=== PATIENT | male | born 1995 | race Caucasian/White ===

== ENCOUNTER 2022-10-28 09:24 | Outpatient (REF) | payer OTHER, SELFPAY ==
[2022-10-28 11:48] LABS: Appearance Urine Clear; Color Urine Yellow; Glucose Urine UA Negative (Negative); Leukocyte Esterase Urine Negative (Negative); Nitrite Urine Negative (Negative); Specific Gravity - Urine 1.025 (1.005-1.025); Urine Blood Negative (Negative); Urine Ketones Negative (Negative); Urine Protein Negative (Neg-Trace)
[2022-10-28 12:37] LABS: Creatinine Urine 188.15 mg/dL; Microalbum/Creatinine Ratio Ur 5.3 ug/mg cr
[2022-10-28 12:39] LABS: Alanine Aminotransferase 21 U/L (0-40); Albumin Level 4.3 g/dL (3.5-5.0); Alkaline Phosphatase 88 U/L (39-117); Anion Gap 14 (12-20); Aspartate Amino Transferase 18 U/L (5-37); Bilirubin Total 0.6 mg/dL (0.0-1.0); Blood Urea Nitrogen 13 mg/dL (9-16); Calcium 9.3 mg/dL (8.4-10.2); Carbon Dioxide 25 mmol/L (22-29); Chloride 105 mmol/L (96-108); Cholesterol 173 mg/dL; Estimated Glomerular Filt Rate > 60; Glucose Fasting 85 mg/dL (60-99); HDL Cholesterol 61 mg/dL; LDL Cholesterol Calculated 100 mg/dl; Potassium 4.2 mmol/L (3.3-5.1); Sodium 140 mmol/L (135-145); Total Protein 6.9 g/dL (6.5-8.0); Triglycerides 62 mg/dL
[2022-10-28 12:56] LABS: Erythrocyte Sedimentation Rate 8 MM/HR (0-15)
[2022-10-28 13:28] LABS: Syphilis Screen Nonreactive (Nonreactive)
[2022-10-28 14:36] LABS: CT PCR NOT DETECTED (Not Detect.); NG PCR NOT DETECTED (Not Detect.)
[2022-10-29 13:13] LABS: CRP High Sensitivity 5.2 mg/L
[2022-10-30 04:55] LABS: HBS Num1 40.47 mIU/mL (0-7.99); HBc Num1 0.07 S/CO (0.00-0.79); HBsAGNum1 0.38 S/CO (0.00-0.99); HIV AB/AG Nonreactive (Nonreactive); HIV Num 1 0.06 S/CO (0.00-0.99); Hepatitis B Core Antibody Nonreactive (Nonreactive); Hepatitis B Surface Antigen Negative (Negative); ~HepC Num1 0.08 S/CO (0.00-0.79); ~Hepatitis B Surface Antibody REACTIVE (Nonreactive); ~Hepatitis C Antibody Nonreactive (Nonreactive)
== END 2022-10-28 09:25 | disposition home or self-care (01) ==
LOC: HO.HMGCLDS 09:24
PROVIDERS: Visit Provider Family Medicine
DX: Z00.00 Encounter for general adult medical examination without abnormal findings (principal); Z11.3 Encounter for screening for infections with a predominantly sexual mode of transmission; Z11.4 Encounter for screening for human immunodeficiency virus [HIV]; M54.9 Dorsalgia, unspecified; I10 Essential (primary) hypertension
CPT/HCPCS: 0353U; 80053; 80061; 81003; 82043; 84443; 85652; 86141; 86704; 86706; 86780; 86803; 87340; 87389

== ENCOUNTER → 2022-11-15 08:06 | Outpatient (BNVA) | payer OTHER, SELFPAY | PROVIDERS: PCP Family Medicine; Visit Provider Nurse Practitioner Family | DX: G47.30 Sleep apnea, unspecified (principal); G47.9 Sleep disorder, unspecified; G47.19 Other hypersomnia; R06.83 Snoring | CPT/HCPCS: 99202 ==

== ENCOUNTER 2022-12-26 09:00 | Outpatient (RCR) | payer OTHER, SELFPAY ==
--- NOTE | 2022-10-31 11:01 | MHC.PT.EP ---
[facility] [place] Office [place] [facility] [place] Office [address] Jalil Porras [address] [phone] F: [phone] F: [phone] F: [phone] F: [phone] Physical Therapy Plan of Care Date of Evaluation: Date of Surgery: Diagnosis: dorsalgia Assessment: Patient is a 27 year old R handed male who presents with s/s consistent with dorsalgia, low back pain. 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 Patient past medical history includes sleep apnea. Current impairments include pain, posture, TTP, flexibility, gait mechanics, ROM, strength, activity tolerance and functional mobility. Functional limitations include decreased ability to walk, sit, stand, lift, bend, carry, and sleep. Patient is motivated with good rehab potential. Skilled PT will address impairments and functional limitations in order to achieve goals. 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 Manual therapy to restore motion and function. Therapeutic exercise to improve strength and flexibility. Neuromuscular re-education for posture and balance. Therapeutic activities to return to functional activities of daily living. Electronically signed by: Senthil Ward, CRISTI Please sign and return to therapist. Thank you for your referral.
--- NOTE | 2023-03-10 08:42 | MHC.PT.DC ---
[facility] [place] Office [address] Jalil Porras [address] [phone] F: [phone] F: [phone] F: [phone] F: [phone] Physical Therapy Discharge Report Diagnosis: dorsalgia Date of Surgery: Date of Evaluation: 10/31/22 Date of Discharge: 01/14/23 Treatments to Date: 11 Cancellations to Date: No Shows to Date: Discharge Status: Independent with HEP Discharge Summary: 12/26/22: pt notes increased pain the last week. we discussed management techqniques in depth. He is willing to attempt to manage independently and call back if needed. he is I with HEP. AROM rotation 75% pain free. TTP min to absent. Improved trunk rotation with gait mechanics. We will plan to d/c to HEP in 4 weeks if no call back. 12/12/22: pt notes episode of low back pain after 30 minutes of standing. added quad ex with cues for neutral spine. continue to encourage neutral spine in clinic. 12/05/22: pt has been feeling better overall with less pain and improved pain free function. we are going to taper at this time to HEP 12/03/22: Pt progressing well with skilled PT. TTP still improved. He does get achiness and cracking at times. I did educate on how continued strengthening can facilitate the resolution of this. 11/28/22: pt progressing well with skilled PT. 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 11/21/22: pt has been experiencing good progress so we are keeping with a similar program. 11/19/22: reduced discomfort with functional activities but no reducted in TTP since last visit. 11/14/22: some TTP with p/a mobs present at grade III. reduced pain with daily activities. progressing strength and stretching with no adverse reactions. 11/12/22: pt progressing well. reduced sensitivity and pain with daily activities. 11/08/22: pt has been feeling better overall with skilled PT. improved tolerance to PA pressure today. 11/06/22: Pt has been having a tough time with HEP consistency. I educated him on the importance of this. Patient is a 27 year old R handed male who presents with s/s consistent with dorsalgia, low back pain. 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 Patient past medical history includes sleep apnea. Current impairments include pain, posture, TTP, flexibility, gait mechanics, ROM, strength, activity tolerance and functional mobility. Functional limitations include decreased ability to walk, sit, stand, lift, bend, carry, and sleep. Patient is motivated with good rehab potential. Skilled PT will address impairments and functional limitations in order to achieve goals. Electronically signed by: Senthil Ward, PT Please sign and return to therapist. Thank you for your referral.
== END 2023-03-10 09:27 | disposition home or self-care (01) ==
LOC: HO.PTCHIC 09:00
PROVIDERS: PCP Family Medicine; Visit Provider Family Medicine
DX: M54.9 Dorsalgia, unspecified (principal)
CPT/HCPCS: 97014; 97110; 97140; 97161

== ENCOUNTER 2022-12-27 10:58 | Outpatient (REF) | payer OTHER, SELFPAY ==
--- NOTE | ~2022-12-27 | XR_ITS ---
EXAMINATION: XR THORACOLUMBAR SPINE CLINICAL INFORMATION: EXAMINATION: XR THORACIC SPINE CLINICAL INFORMATION: Pain. COMPARISON: None available. TECHNIQUE: 3 views of the thoracic spine were obtained. FINDINGS: Mild kyphosis but no fracture or destructive process. Paraspinal soft tissue shadows are normal. XR/XR lumbar spine 2-3V IMPRESSION: Unremarkable examination. COMPARISON: None available. TECHNIQUE: 2 views lumbar spine FINDINGS: No fracture or destructive process or alignment abnormality. Vertebral body heights and disc space heights are preserved. IMPRESSION: Unremarkable study.
--- NOTE | ~2022-12-27 | XR_ITS ---
EXAMINATION: XR THORACOLUMBAR SPINE CLINICAL INFORMATION: EXAMINATION: XR THORACIC SPINE CLINICAL INFORMATION: Pain. COMPARISON: None available. TECHNIQUE: 3 views of the thoracic spine were obtained. FINDINGS: Mild kyphosis but no fracture or destructive process. Paraspinal soft tissue shadows are normal. XR/XR thoracic spine 2V IMPRESSION: Unremarkable examination. COMPARISON: None available. TECHNIQUE: 2 views lumbar spine FINDINGS: No fracture or destructive process or alignment abnormality. Vertebral body heights and disc space heights are preserved. IMPRESSION: Unremarkable study.
== END 2022-12-27 10:59 | disposition home or self-care (01) ==
LOC: HO.XRAY 10:58
PROVIDERS: PCP Family Medicine; Visit Provider Family Medicine
DX: M54.9 Dorsalgia, unspecified (principal)
CPT/HCPCS: 72070; 72100

== ENCOUNTER → 2023-01-28 09:03 | Outpatient (REF) | payer OTHER, SELFPAY | LOC: HO.SL 09:03 | PROVIDERS: PCP Family Medicine; Visit Provider Nurse Practitioner Family | DX: G47.33 Obstructive sleep apnea (adult) (pediatric) (principal) | CPT/HCPCS: 95806 ==

== ENCOUNTER 2023-04-08 16:19 | Outpatient (AMB) | payer OTHER, SELFPAY ==
[2023-04-08 16:40] VITALS: BP 130/78; PULSE 98; O2SAT 99; BMI 35.6
--- NOTE | 2023-04-08 16:40 | MHC.PC.OV ---
Vital Signs 04/08/23 16:40 Height 5 ft 10 in Weight 248 lb BMI 35.6 BP 130/78 Blood Pressure Location Lt brachial Position Sitting Pulse 98 Pulse Source Pulse Oximeter Pulse Oximetry (%) 99 Oxygen Delivery Method Room Air Intake Visit Reasons: Discuss Medical Issue Intake Note: Patient is here to get a referral for a therapist. He also has been having back pain that has not resolved with physical therapy, and would like to follow up on sleep study. Allergies No Known Allergies Allergy (Verified 04/08/23 17:12) Medication List - Last Reconciled 04/08/23 by Marisol Krishnan CNP gabapentin 1-2 caps orally 2 times a day PRN; 30 days meloxicam 15 mg PO DAILY 30 days omeprazole 20 mg PO DAILY 30 days Tobacco use date assessed: 04/08/23 Dental Screening Dental Screen Date: 04/08/23 Did you have a dental visit in the last 12 months?: Yes Did you have a dental problem in the last 6 months where you did not have access to dental care?: No Was dental information given to patient?: No HPI Discuss Medical Issue HPI Details 27 y/o male presents to get a referral for a therapist. Pt also has complaints of back pain which has not resolved with physical therapy. Pt has also tried gabapentin. Sleep study 02/12/23 showed that study significant for moderate degree of sleep apnea. Pt states he has been noticing that his temper has been a lot shorter than it normally is. Pt scores high for anxiety/depression. He denies making plans to hurt himself. He has not been on any medications for his anxiety/depression. He states he has not seen an orthopedics specialist for his back yet. He states he does not feel like meloxicam has been helping with his pain. HPI Comments History of Present Illness Details Documentation assistance for Maximino Zeng MD, was provided by Sonido Kessler,? Plate Shear Operator on 04/08/2023 5:08 PM YOVANA. I, Dr. Zeng, have read, observed, and verified documentation.? PFSH Family History (Updated 11/15/22 @ 08:12 by Deja Valderrama CMA) Father Diabetes HTN (hypertension) Social History (Updated 11/15/22 @ 08:12 by Deja Valderrama CMA) Housing: House Alcohol intake: current Alcohol intake frequency: holidays/special occasions only Patient Tobacco Use Status: Never used Tobacco e-Cigarette/Vaping Use: Never Used service: Yes Current occupational status: employed Cognitive needs: No Hearing needs: No Vision needs: No Questionnaire PHQ-9 Over the last 2 weeks, how often have you been bothered by any of the following problems? 1. Little interest or pleasure in doing things: more than half the days 2. Feeling down, depressed, or hopeless: more than half the days 3. Trouble falling or staying asleep, or sleeping too much: nearly every day 4. Feeling tired or having little energy: nearly every day 5. Poor appetite or overeating: nearly every day 6. Feeling bad about yourself - or that you are a failure or have let yourself or your family down: more than half the days 7. Trouble concentrating on things, such as reading the newspaper or watching television: more than half the days 8. Moving or speaking so slowly that other people could have noticed. Or the opposite - being so fidgety or restless that you have been moving around a lot more than usual: more than half the days 9. Thoughts that you would be better off or of hurting yourself in some way: several days Total score: 20 Depression Screening Interpretation: Positive 27130 - PHQ-9 Billing: Yes Source: Developed by Drs. Clement Velez, Sheyla Billings, Priyank Camara and colleagues, with an educational nam from [employer]. Thrive Questionnaire Date Thrive assessed: 10/18/22 NICHOLAS-7 AMB Questionnaire NICHOLAS-7 Date NICHOLAS - 7 assessed: 10/18/22 Feeling nervous, anxious, or on edge: 2 = More than half the days Not being able to stop or control worryin = Nearly every day Worrying too much about different things: 3 = Nearly every day Trouble relaxin = More than half the days Being so restless that it is hard to sit still: 2 = More than half the days Becoming easily annoyed or irritable: 2 = More than half the days Feeling afraid as if something awful might happen: 1 = Several days Total NICHOLAS-7 score (0-4 normal; 5-9 mild; 10-14 moderate; 15-21 severe): 15 Source: Developed by Sheyla ArriagaW. Manuelito, Priyank Camara and colleagues, with an educational nam from [employer]. NICHOLAS-7 Assessment Billing NICHOLAS-7 Assessment Tool: NICHOLAS-7 Assessment 84782 Review of Systems Psych Reports anxiety and Reports depression Physical exam (Primary Care) Vital Signs: Last Vital Signs Pulse 98 04/08/23 16:40 BP 130/78 04/08/23 16:40 Pulse Ox 99 04/08/23 16:40 Oxygen Delivery Method Room Air 04/08/23 16:40 BMI result Body Mass Index 35.6 Tobacco/Smoking Status: Tobacco use Status Tobacco use date assessed 04/08/23 04/08/23 16:43 Patient Tobacco Use Status Never used Tobacco 04/08/23 16:43 e-Cigarette/Vaping Use Never Used 04/08/23 16:43 PHQ-9: PHQ-9 Score PHQ-9: Total score 04/08/23 17:10 Depression Screening Interpretation: Positive Thrive Assessment: Date of Thrive Assessment Date Thrive assessed 10/18/22 04/08/23 16:43 Assessment and Plan Assessment & Plan (1) Back pain: Code(s): M54.9 - Dorsalgia, unspecified Plan: Chronic back pain. X-rays were unrevealing. He has tried physical therapy, meloxicam and gabapentin without much improvement. Will give him a 2nd round of meloxicam and will refer him to Ortho (2) Sleep apnea: Code(s): G47.30 - Sleep apnea, unspecified Plan: Sleep study showed moderately severe sleep apnea Advised he get back in touch with sleep medicine for follow-up. Will also ask the office to help patient set up follow-up. (3) Depression with anxiety: Code(s): F41.8 - Other specified anxiety disorders Plan: Patient denies any plan for self harm and contracts for safety Will refer to nurse navigator for evaluation for services and connection with a therapist Discussed 1st and 2nd line medications for mood disorders and will start Celexa Follow-up in a month Orders: Referrals Orthopedics Referral M54.9 - Dorsalgia, unspecified Nurse Navigator Referral F41.8 - Other specified anxiety disorders Medications: New citalopram (Celexa) 20 mg PO DAILY 30 tabs 1RF 30 days Refilled meloxicam 15 mg PO DAILY 30 days 30 tabs 2RF G47.30 - Sleep apnea, unspecified omeprazole 20 mg PO DAILY 30 days 30 caps 1RF M54.9 - Dorsalgia, unspecified Coding Level of Care Code Est Pt Level 4 (48443) Diagnoses Back pain M54.9 Sleep apnea G47.30 Depression with anxiety F41.8 Additional Codes NICHOLAS-7 Assessment Billing - NICHOLAS-7 Assessment Tool: NICHOLAS-7 Assessment 41969 ([id number])
== END 2023-04-08 17:25 | disposition home or self-care (01) ==
PROVIDERS: PCP Family Medicine; Visit Provider Family Medicine
DX: M54.9 Dorsalgia, unspecified (principal); G47.30 Sleep apnea, unspecified; F41.8 Other specified anxiety disorders
CPT/HCPCS: 96127; 99214

== ENCOUNTER 2023-05-06 10:32 | Outpatient (AMB) | payer OTHER, SELFPAY ==
[2023-05-06 10:46] VITALS: BP 120/80; PULSE 81; O2SAT 98; BMI 35.1
--- NOTE | 2023-05-06 10:46 | MHC.PC.OV ---
Vital Signs 05/06/23 10:46 Height 5 ft 10 in Weight 244 lb 8 oz BMI 35.1 BP 120/80 Blood Pressure Location Lt brachial Position Sitting Pulse 81 Pulse Source Pulse Oximeter Pulse Oximetry (%) 98 Oxygen Delivery Method Room Air Intake Visit Reasons: f/u anxiety/depression Intake Note: Patient is here for follow up on anxiety and depression. Allergies No Known Allergies Allergy (Verified 05/06/23 10:48) Tobacco use date assessed: 05/06/23 Dental Screening Dental Screen Date: 05/06/23 Did you have a dental visit in the last 12 months?: Yes Did you have a dental problem in the last 6 months where you did not have access to dental care?: No Was dental information given to patient?: No HPI f/u anxiety/depression HPI Details 27 y/o male presents to f/u depression/anxiety. Had started him on citalopram and referred him to nurse navigator for connection to a therapist. Pt had reported ongoing chronic back pain despite conservative care. He reports citalopram has been helping with his day to day anxiety. Pt reports he had gotten his CPAP machine yesterday. Had referred him to orthopedics for his back but he reports his appointment is in May. [facility] Family History Father Diabetes HTN (hypertension) Social History Housing: House Alcohol intake: current Alcohol intake frequency: holidays/special occasions only Patient Tobacco Use Status: Former Tobacco user e-Cigarette/Vaping Use: Never Used service: Yes Current occupational status: employed Current occupation: [employer] Cognitive needs: No Hearing needs: No Vision needs: No Questionnaire PHQ-9 Over the last 2 weeks, how often have you been bothered by any of the following problems? 1. Little interest or pleasure in doing things: several days 2. Feeling down, depressed, or hopeless: several days 3. Trouble falling or staying asleep, or sleeping too much: nearly every day 4. Feeling tired or having little energy: nearly every day 5. Poor appetite or overeating: several days 6. Feeling bad about yourself - or that you are a failure or have let yourself or your family down: several days 7. Trouble concentrating on things, such as reading the newspaper or watching television: several days 8. Moving or speaking so slowly that other people could have noticed. Or the opposite - being so fidgety or restless that you have been moving around a lot more than usual: not at all 9. Thoughts that you would be better off or of hurting yourself in some way: not at all Total score: 11 Source: Developed by Drs. Clement Velez, Sheyla Billings, Priyank Camara and colleagues, with an educational nam from [employer]. Thrive Questionnaire Date Thrive assessed: 10/18/22 NICHOLAS-7 AMB Questionnaire NICHOLAS-7 Date NICHOLAS - 7 assessed: 10/18/22 Feeling nervous, anxious, or on edge: 1 = Several days Not being able to stop or control worryin = Several days Worrying too much about different things: 1 = Several days Trouble relaxin = Several days Being so restless that it is hard to sit still: 0 = Not at all Becoming easily annoyed or irritable: 1 = Several days Feeling afraid as if something awful might happen: 1 = Several days Total NICHOLAS-7 score (0-4 normal; 5-9 mild; 10-14 moderate; 15-21 severe): 6 Source: Developed by Drs. Clement Velez, Sheyla Billings, Priyank Camara and colleagues, with an educational nam from [employer]. Review of Systems Const Denies chills, Denies fatigue, Denies fever(s), Denies headache(s) and Denies weakness ENT Denies dizziness and Denies headache(s) Card Denies chest pain, Denies lightheadedness, Denies dyspnea and Denies other (Palpitations) Resp Denies cough, Denies dyspnea, Denies wheezing and Denies other ( shortness of breath) Musc Denies numbness and Denies tingling Neuro Denies dizziness, Denies headache(s), Denies numbness, Denies tingling, Denies paresthesias and Denies weakness Psych Denies anxiety and Denies depression Endo Denies fatigue Aller/Immun Denies wheezing Physical exam (Primary Care) Vital Signs: Last Vital Signs Pulse 81 05/06/23 10:46 BP 120/80 05/06/23 10:46 Pulse Ox 98 05/06/23 10:46 Oxygen Delivery Method Room Air 05/06/23 10:46 BMI result Body Mass Index 35.1 Tobacco/Smoking Status: Tobacco use Status Tobacco use date assessed 05/06/23 05/06/23 10:55 Patient Tobacco Use Status Former Tobacco user 05/06/23 10:55 e-Cigarette/Vaping Use Never Used 05/06/23 10:55 PHQ-9: PHQ-9 Score PHQ-9: Total score 11 05/06/23 11:25 Thrive Assessment: Date of Thrive Assessment Date Thrive assessed 10/18/22 05/06/23 10:55 Const General: no acute distress and well developed Nutritional Appearance: well nourished Orientation/consciousness: patient oriented x3 HENMT Head: Yes normocephalic and Yes atraumatic Eyes General: appearance normal, both eyes and all related structures Pupils: Equal, round and reactive pupils present EOM: EOMs intact bilaterally Resp Effort & Inspection: normal respiratory effort Auscultation: clear to auscultation bilaterally Cardio Rate: regular rate Rhythm: regular rhythm Heart sounds: S1 normal heart sound present, S2 normal heart sound present, no gallops, no murmurs and no rubs Neuro General: patient oriented x3 and gait normal Cranial nerves: Yes Equal, round and reactive pupils present Psych Affect: normal affect Assessment and Plan Assessment & Plan (1) Depression with anxiety: Code(s): F41.8 - Other specified anxiety disorders Plan: Mild improvement with Celexa 20 mg daily He has not heard from a therapist yet so I am asking the nurse navigator to follow-up on this Also encouraged regular exercise Will follow-up with me in 2 months (2) Back pain: Code(s): M54.9 - Dorsalgia, unspecified Plan: Referred to ortho and has an appointment in May (3) Sleep apnea: Code(s): G47.30 - Sleep apnea, unspecified Plan: Started CPAP machine yesterday and is a little frustrated but is hopeful he will be able to tolerate this. Encouraged patient and suggested trials of practice while awake as well. Encouraged regular use Follow-up with sleep medicine Coding Level of Care Code Est Pt Level 3 (54119) Diagnoses Depression with anxiety F41.8 Back pain M54.9 Sleep apnea G47.30
== END 2023-05-06 11:34 | disposition home or self-care (01) ==
PROVIDERS: PCP Family Medicine; Visit Provider Family Medicine
DX: F41.8 Other specified anxiety disorders (principal); M54.9 Dorsalgia, unspecified; G47.30 Sleep apnea, unspecified
CPT/HCPCS: 99213

== ENCOUNTER 2023-06-25 10:31 | Outpatient (AMB) | payer OTHER, SELFPAY ==
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
[2023-06-25 10:38] VITALS: BP 104/68; PULSE 93; RESP 14; TEMP 37.2; O2SAT 98; BMI 35.4
== END 2023-06-25 12:06 | disposition home or self-care (01) ==
PROVIDERS: PCP Family Medicine; Visit Provider Family Medicine
DX: S06.0XAA Concussion with loss of consciousness status unknown, initial encounter (principal); M54.2 Cervicalgia; M54.9 Dorsalgia, unspecified; M25.519 Pain in unspecified shoulder; V89.2XXA Person injured in unspecified motor-vehicle accident, traffic, initial encounter
CPT/HCPCS: 99214

== ENCOUNTER 2023-07-01 14:22 | Outpatient (AMB) | payer OTHER, SELFPAY ==
[2023-07-01 14:26] VITALS: BP 122/78; PULSE 83; O2SAT 98; BMI 35.5
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
== END 2023-07-01 15:18 | disposition home or self-care (01) ==
PROVIDERS: PCP Family Medicine; Visit Provider Family Medicine
DX: S06.0XAA Concussion with loss of consciousness status unknown, initial encounter (principal); R51.9 Headache, unspecified; M54.2 Cervicalgia
CPT/HCPCS: 99213

== ENCOUNTER 2023-07-10 13:03 | Outpatient (AMB) | payer OTHER, SELFPAY ==
--- NOTE | 2023-07-10 13:05 | MHC.OFFVIS ---
Intake Vital Signs 07/10/23 13:07 Height 5 ft 10 in Weight 247 lb 6 oz BMI 35.5 BP 122/80 Blood Pressure Location Rt brachial Position Sitting Pulse 101 H Pulse Source Pulse Oximeter Pulse Oximetry (%) 97 Oxygen Delivery Method Room Air Intake Visit Reasons: 2m f/up MONICA - Confirmed Intake Note: Pt presents to the office today for a 2 month follow up for MONICA. Pt states he has been sleeping better with the CPAP. Pt states he is still waking up during the night but he states it is easier to fall back to sleep. Allergies No Known Allergies Allergy (Verified 07/10/23 13:08) HPI HPI Comments History of Present Illness Details 27 y/o male patient presents for follow up of sleep study. The home sleep study result was significant for moderate degree of sleep apnea. The AHI was 16/hr and oxygen little was 76%. Pt started APAP 5-16pmN1A. The usage days 43% and the average usage hours 4 hrs and 30 min. The max pressure was 12 and the residual AHI was 1.6/hr. Pt reports he did not use CPAP regularly. He still had wakes up with CPAP and had nightmares. PFSH Family History Father Diabetes HTN (hypertension) Social History Housing: House Alcohol intake: current Alcohol intake frequency: holidays/special occasions only Patient Tobacco Use Status: Former Tobacco user e-Cigarette/Vaping Use: Never Used service: Yes Current occupational status: employed Current occupation: [employer] Cognitive needs: No Hearing needs: No Vision needs: No Review of Systems Const All systems reviewed & are unremarkable except as noted in HPI and below ENT Reports Normal hearing present Neuro Reports Normal hearing present Physical Exam Vital Signs: Last Vital Signs Pulse 101 H 07/10/23 13:07 BP 122/80 07/10/23 13:07 Pulse Ox 97 07/10/23 13:07 Oxygen Delivery Method Room Air 07/10/23 13:07 BMI result Body Mass Index 35.5 Const General: cooperative Nutritional Appearance: obese Orientation/consciousness: patient oriented x3 HEENT Throat: Yes other (mallapati grade 4) Neck Neck: Yes full ROM and Yes supple Resp Effort & Inspection: normal respiratory effort and able to speak in complete sentences Neuro General: patient oriented x3, gait normal and moves all extremities Cranial nerves: Yes Normal facial strength present, Yes Midline tongue present, Yes Symmetric palate elevation present, Yes Normal hearing present and Yes Ability to bilaterally rotate head present Cognition (Neuro): normal cognition Gait exam (Neuro): Normal gait present Motor exam (neuro): 5/5 motor strength present throughout, Pronator motor function not present and no tremor noted Psych Appearance: grossly normal Mental Status: mental status grossly normal Affect: normal affect Attitude: cooperative Assessment & Plan Assessment & Plan (1) Sleep apnea: Code(s): G47.30 - Sleep apnea, unspecified (2) Difficulty sleeping: Code(s): G47.9 - Sleep disorder, unspecified (3) Snoring: Code(s): R06.83 - Snoring (4) Excessive daytime sleepiness: Code(s): G47.19 - Other hypersomnia Plan Advised patient to continue to use APAP [id number]. Stressed compliance, use CPAP nightly and more than 4hrs. Advised patient to try magnesium 400 mg qHS for sleep. Wt reduction adivsed. Medications: New magnesium oxide 400 mg PO DAILY 30 tabs 4RF 30 days Coding Level of Care Code Est Pt Level 3 (52080) Diagnoses Sleep apnea G47.30 Difficulty sleeping G47.9 Snoring R06.83 Excessive daytime sleepiness G47.19
[2023-07-10 13:07] VITALS: BP 122/80; PULSE 101; O2SAT 97; BMI 35.5
== END 2023-07-10 13:32 | disposition home or self-care (01) ==
PROVIDERS: PCP Family Medicine; Visit Provider Nurse Practitioner Family
DX: G47.30 Sleep apnea, unspecified (principal); G47.9 Sleep disorder, unspecified; R06.83 Snoring; G47.19 Other hypersomnia
CPT/HCPCS: 99213

== ENCOUNTER → 2023-07-10 13:03 | Outpatient (BNVA) | payer OTHER, SELFPAY | PROVIDERS: Visit Provider Nurse Practitioner Family | DX: G47.30 Sleep apnea, unspecified (principal); G47.9 Sleep disorder, unspecified; R06.83 Snoring; G47.19 Other hypersomnia; E66.9 Obesity, unspecified; Z99.89 Dependence on other enabling machines and devices; Z91.85 Personal history of military service | CPT/HCPCS: 99212 ==

== ENCOUNTER 2023-11-10 14:16 | Outpatient (AMB) | payer OTHER, SELFPAY ==
--- NOTE | 2023-11-10 14:41 | MHC.OFFVIS ---
Intake Vital Signs 11/10/23 14:44 Height 5 ft 10 in Weight 255 lb BMI 36.6 BP 120/84 Blood Pressure Location Lt brachial Position Sitting Pulse 72 Pulse Source Pulse Oximeter Pulse Oximetry (%) 97 Oxygen Delivery Method Room Air Intake Visit Reasons: 4m f/up MONICA- Confirmed Intake Note: Presents for 4 month f/u. Allergies No Known Allergies Allergy (Verified 07/10/23 13:08) HPI HPI Comments History of Present Illness Details 28 y/o male patient presents for follow up of MONICA on CPAP. The home sleep study result was significant for moderate degree of sleep apnea. The AHI was 16/hr and oxygen little was 76%. Pt started APAP 5-70sgD2N. The CPAP compliance and therapy response (08/06/23-11/03/23) reviewed. The usage days 93% and the average usage hours 6 hrs and 30 min. The max pressure was 12.9 and the residual AHI was 1.2/hr. Pt reports he sleeps well with CPAP for 6-8 hrs. He feels refreshed in the morning and much less tired during daytime. PFSH Family History Father Diabetes HTN (hypertension) Social History Housing: House Alcohol intake: current Alcohol intake frequency: holidays/special occasions only Patient Tobacco Use Status: Former Tobacco user e-Cigarette/Vaping Use: Never Used service: Yes Current occupational status: employed Current occupation: [employer] Cognitive needs: No Hearing needs: No Vision needs: No Review of Systems Const All systems reviewed & are unremarkable except as noted in HPI and below ENT Reports Normal hearing present Neuro Reports Normal hearing present Physical Exam Vital Signs: Last Vital Signs Pulse 72 11/10/23 14:44 BP 120/84 11/10/23 14:44 Pulse Ox 97 11/10/23 14:44 Oxygen Delivery Method Room Air 11/10/23 14:44 BMI result Body Mass Index 36.6 Const General: cooperative Nutritional Appearance: obese Orientation/consciousness: patient oriented x3 HEENT Throat: Yes other (mallapati grade 4) Neck Neck: Yes full ROM and Yes supple Resp Effort & Inspection: normal respiratory effort and able to speak in complete sentences Neuro General: patient oriented x3, gait normal and moves all extremities Cranial nerves: Yes Normal facial strength present, Yes Midline tongue present, Yes Symmetric palate elevation present, Yes Normal hearing present and Yes Ability to bilaterally rotate head present Cognition (Neuro): normal cognition Gait exam (Neuro): Normal gait present Motor exam (neuro): 5/5 motor strength present throughout, Pronator motor function not present and no tremor noted Psych Appearance: grossly normal Mental Status: mental status grossly normal Affect: normal affect Attitude: cooperative Assessment & Plan Assessment & Plan (1) Sleep apnea: Code(s): G47.30 - Sleep apnea, unspecified Plan Advised patient to continue to use APAP 5-11kgR1P as patient experiences good clinical effects, better quality sleep with less daytimes sleepiness. Stressed compliance, use CPAP nightly and more than 4hrs. Wt reduction adivsed. Coding Level of Care Code Est Pt Level 3 (96075) Diagnoses Sleep apnea G47.30
[2023-11-10 14:44] VITALS: BP 120/84; PULSE 72; O2SAT 97; BMI 36.6
== END 2023-11-10 14:56 | disposition home or self-care (01) ==
PROVIDERS: PCP Family Medicine; Visit Provider Nurse Practitioner Family
DX: G47.30 Sleep apnea, unspecified (principal)
CPT/HCPCS: 99213

== ENCOUNTER → 2023-11-10 14:16 | Outpatient (BNVA) | payer OTHER, SELFPAY | PROVIDERS: PCP Family Medicine; Visit Provider Nurse Practitioner Family | DX: G47.30 Sleep apnea, unspecified (principal) | CPT/HCPCS: 99212 ==

== ENCOUNTER 2023-12-17 15:57 | Outpatient (AMB) | payer OTHER, SELFPAY ==
[2023-12-17 16:04] VITALS: BP 126/84; PULSE 101; RESP 13; TEMP 36.5; O2SAT 99; BMI 37.5
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
== END 2023-12-17 16:44 | disposition home or self-care (01) ==
PROVIDERS: Visit Provider Family Medicine
DX: Z00.00 Encounter for general adult medical examination without abnormal findings (principal); F41.8 Other specified anxiety disorders; G47.30 Sleep apnea, unspecified; R10.9 Unspecified abdominal pain; R12 Heartburn; M25.532 Pain in left wrist; M25.512 Pain in left shoulder; Z13.31 Encounter for screening for depression
CPT/HCPCS: 96127; 99395

== ENCOUNTER 2023-12-30 15:13 | Outpatient (REF) | payer OTHER, SELFPAY ==
[2023-12-30 16:30] LABS: Appearance Urine Clear; Color Urine Yellow; Glucose Urine UA Negative (Negative); Leukocyte Esterase Urine Negative (Negative); Nitrite Urine Negative (Negative); PH 7.5 (5.0-9.0); Urine Blood Negative (Negative); Urine Ketones Negative (Negative); Urine Protein Negative (Neg-Trace)
[2023-12-30 16:53] LABS: Creatinine Urine 168.08 mg/dL; Microalbum/Creatinine Ratio Ur 3.5 ug/mg cr (<30)
[2023-12-30 17:00] LABS: Alanine Aminotransferase 25 U/L (0-40); Albumin Level 4.3 g/dL (3.5-5.0); Alkaline Phosphatase 85 U/L (39-117); Anion Gap 11 (12-20); Aspartate Amino Transferase 15 U/L (5-37); Bilirubin Total 0.2 mg/dL (0.0-1.0); Blood Urea Nitrogen 10 mg/dL (9-16); Calcium 9.6 mg/dL (8.4-10.2); Carbon Dioxide 26 mmol/L (22-29); Chloride 107 mmol/L (96-108); Cholesterol 181 mg/dL (<200); Estimated Glomerular Filt Rate > 60; Glucose Fasting 114 mg/dL (60-99); HDL Cholesterol 68 mg/dL (>40); LDL Cholesterol Calculated 89 mg/dL (<100); Potassium 3.6 mmol/L (3.3-5.1); Sodium 140 mmol/L (135-145); Total Protein 7.5 g/dL (6.5-8.0); Triglycerides 124 mg/dL (<150)
[2023-12-30 17:15] LABS: TSH reflex Free T4 1.13 uIU/mL (0.32-4.0)
== END 2023-12-30 15:14 | disposition home or self-care (01) ==
LOC: HO.HMGCLDS 15:13
PROVIDERS: PCP Family Medicine; Visit Provider Family Medicine
DX: Z00.00 Encounter for general adult medical examination without abnormal findings (principal); I10 Essential (primary) hypertension
CPT/HCPCS: 36415; 80053; 80061; 81003; 82043; 82570; 84443

== ENCOUNTER 2024-08-04 14:48 | Outpatient (AMB) | payer BC, SELFPAY ==
--- NOTE | 2024-08-04 14:53 | A.OFFPC_ITS ---
Vital Signs 08/04/24 15:02 Height 5 ft 10 in Weight 260 lb BMI 37.3 BP 104/90 H Blood Pressure Location Lt brachial Position Sitting Respiration 16 Pulse 103 H Pulse Source Pulse Oximeter Temp 98.0 F Temp Source Oral Pulse Oximetry (%) 95 Oxygen Delivery Method Room Air Intake Visit Reasons: FU elevated fasting glucose Allergies No Known Allergies Allergy (Verified 08/04/24 15:05) Medication List - Last Reconciled 08/04/24 by Maximino Zeng MD citalopram (Celexa) 20 mg PO DAILY 30 days cyclobenzaprine 10 mg PO BEDTIME PRN 10 days NS gabapentin 1-2 caps orally 2 times a day PRN; 30 days hydroxyzine HCl 50 mg PO BEDTIME 30 days magnesium oxide 400 mg PO DAILY 30 days meloxicam 15 mg PO DAILY 30 days omeprazole 20 mg PO DAILY 30 days Tobacco use date assessed: 12/31/23 Dental Screening Dental Screen Date: 12/17/23 HPI FU elevated fasting glucose HPI Details 28 y/o male presents to f/u elevated fas ting glucose. Had a hx of elevated fasting glucose of 114. A1c today 08/04/24 is 5.7%. [facility] Medical History No pertinent past medical history Surgical History No pertinent past surgical history Family History Father Diabetes HTN (hypertension) Other Mental health disorder Substance abuse Social History Housing: House Alcohol intake: current Alcohol intake frequency: holidays/special occasions only Patient Tobacco Use Status: Former Tobacco user e-Cigarette/Vaping Use: Currently Using service: Yes Current occupational status: employed Current occupation: [employer] Cognitive needs: No Hearing needs: No Vision needs: No Questionnaire PHQ-9 Over the last 2 weeks, how often have you been bothered by any of the following problems? 1. Little interest or pleasure in doing things: more than half the days 2. Feeling down, depressed, or hopeless: more than half the days 3. Trouble falling or staying asleep, or sleeping too much: nearly every day 4. Feeling tired or having little energy: more than half the days 5. Poor appetite or overeating: more than half the days 6. Feeling bad about yourself - or that you are a failure or have let yourself or your family down: more than half the days 7. Trouble concentrating on things, such as reading the newspaper or watching television: several days 8. Moving or speaking so slowly that other people could have noticed. Or the opposite - being so fidgety or restless that you have been moving around a lot more than usual: not at all 9. Thoughts that you would be better off or of hurting yourself in some way: several days Total score: 15 Source: Developed by Drs. Clement Velez, Sheyla Billings, Priyank Camara and colleagues, with an educational nam from [employer]. Thrive Questionnaire Date Thrive assessed: 12/17/23 I am a: Patient What is your living situation today?: I have a steady place to live Within the past 12 months, did the food you bought not last and you didn't have the money to get more?: Never true Within the past 12 months, did you worry whether your food would run out before you got money to buy more?: Never true Do you have trouble paying for medicines?: No Do you have trouble getting transportation to medical appointments?: No Do you have trouble paying your heating and electricity bill?: No Do you have trouble taking care of your child, family member or friend?: No Do you have trouble with day-to-day activities such as bathing, preparing meals, shopping, managing finances, etc.?: No Are you currently unemployed and looking for a job?: No Are you interested in more education?: Yes Please select the resources that you would like help with: None Currently or been in a relationship where the following occur: No concerns reported THRIVE Score: 0 AUDIT C Alcohol Use Questionnaire (AUDIT-C) 1. How often do you have a drink containing alcohol?: 2-3 times a week 2. How many drinks containing alcohol do you have on a typical day when you are drinking?: 3 or 4 3. How often do you have six or more drinks on one occasion?: Monthly Total Score: 6 NICHOLAS-7 AMB Questionnaire NICHOLAS-7 Date NICHOLAS - 7 assessed: 12/17/23 Feeling nervous, anxious, or on edge: 2 = More than half the days Not being able to stop or control worryin = More than half the days Worrying too much about different things: 2 = More than half the days Trouble relaxin = More than half the days Being so restless that it is hard to sit still: 1 = Several days Becoming easily annoyed or irritable: 2 = More than half the days Feeling afraid as if something awful might happen: 1 = Several days Total NICHOLAS-7 score (0-4 normal; 5-9 mild; 10-14 moderate; 15-21 severe): 12 Source: Developed by Drs. Clement Velez, Sheyla Billings, Priyank Camara and colleagues, with an educational nam from [employer]. Review of Systems Const Denies chills, Denies fatigue, Denies fever(s), Denies headache(s) and Denies weakness ENT Denies dizziness and Denies headache(s) Card Denies chest pain, Denies lightheadedness, Denies dyspnea and Denies other (Palpitations) Resp Denies cough, Denies dyspnea, Denies wheezing and Denies other ( shortness of breath) Musc Denies numbness and Denies tingling Neuro Denies dizziness, Denies headache(s), Denies numbness, Denies tingling, Denies paresthesias and Denies weakness Psych Denies anxiety and Denies depression Endo Denies fatigue Aller/Immun Denies wheezing Physical exam (Primary Care) Vital Signs: Last Vital Signs Temp 98.0 F 08/04/24 15:02 Pulse 103 H 08/04/24 15:02 Resp 16 08/04/24 15:02 BP 104/90 H 08/04/24 15:02 Pulse Ox 95 08/04/24 15:02 Oxygen Delivery Method Room Air 08/04/24 15:02 BMI result Body Mass Index 37.3 Tobacco/Smoking Status: Tobacco use Status Tobacco use date assessed 12/31/23 08/04/24 14:54 Patient Tobacco Use Status Former Tobacco user 08/04/24 14:54 e-Cigarette/Vaping Use Currently Using 08/04/24 14:54 PHQ-9: PHQ-9 Score PHQ-9: Total score 15 08/04/24 15:02 Thrive Assessment: Date of Thrive Assessment Date Thrive assessed 12/17/23 08/04/24 14:54 Currently or been in a relationship where the following occur: No concerns reported Const General: no acute distress and well developed Nutritional Appearance: well nourished Orientation/consciousness: patient oriented x3 HENMT Head: Yes normocephalic and Yes atraumatic Eyes General: appearance normal, both eyes and all related structures Pupils: Equal, round and reactive pupils present EOM: EOMs intact bilaterally Resp Effort & Inspection: normal respiratory effort Auscultation: clear to auscultation bilaterally Cardio Rate: regular rate Rhythm: regular rhythm Heart sounds: S1 normal heart sound present, S2 normal heart sound present, no gallops, no murmurs and no rubs Neuro General: patient oriented x3 and gait normal Cranial nerves: Yes Equal, round and reactive pupils present Psych Affect: normal affect Results AMB Hemoglobin A1c AMB Hemoglobin A1c 5.7 % Last Edit by SETH Hernández on 08/04/24 15:12 Results Reviewed Results Reviewed: Laboratory Last Values Hgb A1c (Clinic) 5.7 % (4.0-6.0) 08/04/24 15:11 Coding Level of Care Code Est Pt Level 3 (89476) Diagnoses Pre-diabetes R73.03 Assessment & Plan Assessment & Plan (1) Pre-diabetes: Code(s): R73.03 - Prediabetes Category: Medical Plan: A1c?5.7%;?pre?diabetes. Encouraged?a?diet?lower?in?sugars?and?starches Encouraged?weight?loss?and?exercise Orders: Orders AMB Hemoglobin A1c Today R73.03 - Prediabetes
[2024-08-04 15:02] VITALS: BP 104/90; PULSE 103; RESP 16; TEMP 36.7; O2SAT 95; BMI 37.3
== END 2024-08-04 15:15 | disposition home or self-care (01) ==
LOC: HO.HMCFM 14:49
PROVIDERS: PCP Family Medicine; Visit Provider Family Medicine
DX: R73.03 Prediabetes (principal)

== ENCOUNTER → 2024-08-04 14:48 | Outpatient (BNVA) | payer BC, SELFPAY | PROVIDERS: PCP Family Medicine; Visit Provider Family Medicine | DX: R73.03 Prediabetes (principal) | CPT/HCPCS: 83036; 96127 ==

== ENCOUNTER 2024-11-01 10:23 | Outpatient (REF) | payer BC, SELFPAY ==
--- OUTSIDE RECORDS SUMMARY | 2024-11-01 11:13 | XMS_ITS | Continuity of Care Document ---
Author Name [facility] Organization [facility] Care Team Providers Care Physician Obstetrician Name Role Phone [facility] Unavailable Unavailable Medications Combined list of outpatient medications from Department of Defense and Veterans Affairs facilities.Medications provided include 1) outpatient medications from the last 15 months, and 2) patient-reported medications. Medication Details Route Status Patient Instructions Prescription Expires Prescription Number Last Dispense Date Ordering Provider Order Date Order Qty Source CITALOPRAM HBR (CITALOPRAM HYDROBROMID E), 20MG, TABLET, ORAL, TORRENT PHARMAC, 500 ea. BOTTLE Cancele d [id number] : 2023 0 Pharmac y Data Transac tion Service Facilit y CITALOPRAM HBR (CITALOPRAM HYDROBROMID E), 20MG, TABLET, ORAL, TORRENT PHARMAC, 500 ea. BOTTLE Cancele d [id number] : 2023 0 Pharmac y Data Transac tion Service Facilit y CITALOPRAM HBR (CITALOPRAM HYDROBROMID E), 20MG, TABLET, ORAL, TORRENT PHARMAC, 500 ea. BOTTLE Active [id number] 2023 30 Pharmac y Data Transac tion Service Facilit y CITALOPRAM HBR (CITALOPRAM HYDROBROMID E), 20MG, TABLET, ORAL, TORRENT PHARMAC, 500 ea. BOTTLE Active [id number] 2022 30 Pharmac y Data Transac tion Service Facilit y gabapentin 300 mg oral capsule 1 cap(s), Oral, TID, 0 total refill(s ), Maintena nce Oral (given by mouth) Ordered 0035C-N [facility] [place]o HYDROXYZINE HCL (hydroxyzin e HCl), 50 MG, TABLET, ORAL, AUROBINDO PHARM, 500 ea. BOTTLE Cancele d [id number] : 2023 0 Pharmac y Data Transac tion Service Facilit y MELOXICAM (MELOXICAM) , 15 MG, TABLET, ORAL, CIPLA [employer] 100 ea. BOTTLE Cancele d [id number] : 2023 0 Pharmac y Data Transac tion Service Facilit y meloxicam 15 mg oral tablet 1 tab(s), Oral, Daily, 0 total refill(s ), Maintena nce Oral (given by mouth) Ordered [id number]-N [facility] OMEPRAZOLE (omeprazole ), 20 MG, CAPSULE DR, ORAL, RISING PHARM, 1000 ea. BOTTLE Cancele d [id number] : 2023 0 Pharmac y Data Transac tion Service Facilit y OMEPRAZOLE (omeprazole ), 20 MG, CAPSULE DR, ORAL, RISING PHARM, 1000 ea. BOTTLE Cancele d [id number] : 2023 0 Pharmac y Data Transac tion Service Facilit y OMEPRAZOLE (omeprazole ), 20 MG, CAPSULE DR, ORAL, RISING PHARM, 1000 ea. BOTTLE Active [id number] 2022 30 Pharmac y Data Transac tion Service Facilit y OMEPRAZOLE (omeprazole ), 20 MG, CAPSULE DR, ORAL, RISING PHARM, 1000 ea. BOTTLE Active [id number] 2023 30 Pharmac y Data Transac tion Service Facilit y Allergies, Adverse Reactions, Alerts Combined list of allergies from Department of Defense and Veterans Affairs facilities. It does not include entries that were removed or entered in error. Substance Category Reaction Severity Reaction type Status Date Reported Comments Source No Known Allergies Drug allergy (disorder) active 01/21/2017 Jr Miguel [facility] Immunizations Combined list of available immunizations from the Department of Defense and Veterans Affairs facilities. Immunization Series Date Given Administered By Site Reaction Lot Number CVX Code Drug Bread Slicer Machine Status Comments Source COVID Vaccine Moderna 2021 zzLef t Arm [id number] complet ed COVID Vaccine Moderna 10/03/21 Given Ambulat ory Pharmac y SARS-COV-2 (COVID-19) vaccine, mRNA, spike protein, LNP, preservative free, 100 mcg or 50 mcg dose 3 2021 MIREYA WALL [id number] Moderna [employer] (MOD) complet ed SARS-COV- 2 (COVID-19 ) vaccine, mRNA, spike protein, LNP, preservat ekta free, 100 mcg or 50 mcg dose DoD influenza, injectable, quadrivalent- pf 2020 [id number] Seqirus complet ed influenza , injectabl e, quadrival ent-pf 07/31/21 Given Ambulat ory Pharmac y Influenza, injectable, quadrivalent, preservative free 0 2020 [id number] Seqirus (SEQ) comple t ed Influenza , injectabl e, quadrival ent, preservat ekta free DoD COVID Vaccine Moderna 2020 zzLef t Arm [id number] complet ed COVID Vaccine Moderna 11/22/20 Given Ambulat ory Pharmac y SARS-COV-2 (COVID-19) vaccine, mRNA, spike protein, LNP, preservative free, 100 mcg or 50 mcg dose 2 2020 MARLENE HARVEY I [id number] 207 Moderna [employer] (MOD) complet ed SARS-COV- 2 (COVID-19 ) vaccine, mRNA, spike protein, LNP, preservat ekta free, 100 mcg or 50 mcg dose DoD COVID Vaccine Moderna 2020 [id number] complet ed COVID Vaccine Moderna 10/26/20 Given Ambulat ory Pharmac y SARS-COV-2 (COVID-19) vaccine, mRNA, spike protein, LNP, preservative free, 100 mcg or 50 mcg dose 1 2020 [id number] 207 Moderna [employer] (MOD) complet ed SARS-COV- 2 (COVID-19 ) vaccine, mRNA, spike protein, LNP, preservat ekta free, 100 mcg or 50 mcg dose DoD influenza, injectable, quadrivalent- pf 2019 [id number] 150 Unknown complet ed influenza , injectabl e, quadrival ent-pf 07/24/20 Given Ambulat ory Pharmac y Influenza, injectable, quadrivalent, preservative free 0 2019 [id number] 150 Unknown (UNK) comple t ed Influenza , injectabl e, quadrival ent, preservat ekta free DoD influenza, injectable, quadrivalent- pf 2018 [id number] 150 Seqirus complet ed influenza , injectabl e, quadrival ent-pf 08/16/19 Given Ambulat ory Pharmac y Influenza, injectable, quadrivalent, preservative free 0 2018 [id number] 150 Seqirus (SEQ) complet ed Influenza , injectabl e, quadrival ent, preservat ekta free DoD influenza, injectable, quadrivalent- pf 2017 zzL t Arm [id number] 150 GlaxoSmithKli ne complet ed influenza , injectabl e, quadrival ent-pf 07/15/18 Given Ambulat ory Pharmac y Influenza, injectable, quadrivalent, preservative free 1 2017 VALDEZ GARCIA I [id number] 150 SmithKline (SKB) complet ed Influenza , injectabl e, quadrival ent, preservat ekta free DoD hepatitis A-hepatitis B vaccine 2017 zzL t Arm [id number] 104 GlaxoSmithKli ne complet ed hepatitis A-hepatit is B vaccine 03/18/18 Given Ambulat ory Pharmac y hepatitis A and hepatitis B vaccine 3 2017 THADDEUS ARROYO [id number] 104 [employer] (SKB) complet ed hepatitis A and hepatitis B vaccine DoD influenza, injectable, quadrivalent- pf 2016 zzL t Arm [id number] 150 GlaxoSmithKli ne complet ed influenza , injectabl e, quadrival ent-pf 09/26/17 Given Ambulat ory Pharmac y Influenza, injectable, quadrivalent, preservative free 1 2016 VALDEZ APONTE [id number] 150 [employer]Kline (SKB) complet ed Influenza , injectabl e, quadrival ent, preservat ekta free DoD influenza, injectable, quadrivalent- pf 2016 [id number] 150 GlaxoSmithKli ne complet ed influenza , injectabl e, quadrival ent-pf 08/13/17 Given Ambulat ory Pharmac y Influenza, injectable, quadrivalent, preservative free 0 2016 [id number] 150 SmithKline (SKB) complet ed Influenza , injectabl e, quadrival ent, preservat ekta free DoD hepatitis A-hepatitis B vaccine 2016 zzLef t Arm [id number] GlaxoSmithKli ne complet ed hepatitis A-hepatit is B vaccine 02/06/17 Given Ambulat ory Pharmac y varicella virus vaccine 2016 zzLef t Arm [id number] Merck & Company Inc complet ed varicella virus vaccine 02/06/17 Given Ambulat ory Pharmac y measles/mumps /rubella virus vaccine 2016 zzLef t Arm [id number] 03 Merck & Company Inc complet ed measles/m umps/rube lla virus vaccine 02/06/17 Given Ambulat ory Pharmac y poliovirus vaccine, inactivated 2016 zzRig ht Arm [id number] 10 sanofi pasteur complet ed polioviru s vaccine, inactivat ed 02/06/17 Given Ambulat ory Pharmac y measles, mumps and rubella virus vaccine 2 2016 AKILA SWAIN [id number] 03 Merck (MSD) complet ed measles, mumps and rubella virus vaccine DoD poliovirus vaccine, inactivated 1 2016 AKILA SWAIN [id number] 10 Sanofi Pasteur (PMC) complet ed polioviru s vaccine, inactivat ed DoD varicella virus vaccine 2 2016 AKILA SWAIN [id number] 21 Merck (MSD) complet ed varicella virus vaccine DoD hepatitis A and hepatitis B vaccine 2 2016 AKILA SWAIN [id number] [facility] complet ed hepatitis A and hepatitis B vaccine DoD tuberculin purified protein derivative 2016 zzLef t Arm [id number] 96 sanofi pasteur complet ed Patient Tolerance : Negative Ambulat ory Pharmac y tuberculin skin test; purified protein derivative solution, intradermal 0 2016 TL BRITT [id number] 96 Sanofi Pasteur (PMC) complet ed tuberculi n skin test; purified protein derivativ e solution, intraderm al DoD varicella virus vaccine 2016 zzRig ht Arm [id number] 21 Merck & Company Inc complet ed varicella virus vaccine 01/06/17 Given Ambulat ory Pharmac y hepatitis A-hepatitis B vaccine 2016 zzLef t Arm [id number] 104 GlaxoSmithKli ne complet ed hepatitis A-hepatit is B vaccine 01/06/17 Given Ambulat ory Pharmac y measles/mumps /rubella virus vaccine [facility] [id number] 03 Merck & Company Inc complet ed measles/m umps/rube lla virus vaccine 01/06/17 Given Ambulat ory Pharmac y meningococcal A,C,Y,W-135 (MCV4P) 2016 zDavi t Arm [id number] 114 sanofi pasteur complet ed meningoco ccal A,C,Y,W-1 35 (MCV4P) 01/06/17 Given Ambulat ory Pharmac y tetanus, diphtheria, acellular pertu is 2016 [facility] [id number] 115 Unknown complet ed tetanus, diphtheri a, acellular pertussis 01/06/17 Given Ambulat ory Pharmac y adenovirus vaccine, live 2016 [id number] 143 Unknown complet ed adenoviru s vaccine, live 01/06/17 Given Ambulat ory Pharmac y influenza, seasonal, injectable-pf 2016 zzL t Arm [id number] 140 Seqirus complet ed influenza , seasonal, injectabl e-pf 01/06/17 Given Ambulat ory Pharmac y measles, mumps and rubella virus vaccine 1 2016 AKILA SWAIN [id number] 03 Merck (MSD) complet ed measles, mumps and rubella virus vaccine DoD varicella virus vaccine 1 2016 AKILA SWAIN [id number] 21 Merck (MSD) complet ed varicella virus vaccine DoD hepatitis A and hepatitis B vaccine 1 2016 AKILA SWAIN [id number] 104 SmithKline (SKB) complet ed hepatitis A and hepatitis B vaccine DoD meningococcal polysaccharid e (groups A, C, Y and W-135) diphtheria toxoid conjugate vaccine (MCV4P) 1 2016 AKILA SWAIN [id number] 114 Sanofi Pasteur (PMC) complet ed meningoco ccal polysacch aride (groups A, C, Y and W-135) diphtheri a toxoid conjugate vaccine (MCV4P) DoD tetanus toxoid, reduced diphtheria toxoid, and acellular pertu is vaccine, adsorbed 1 2016 AKILA SWAIN [id number] 115 Other (OTH) complet ed tetanus toxoid, reduced diphtheri a toxoid, and acellular pertussis vaccine, adsorbed DoD Influenza, seasonal, injectable, preservative free 1 2016 AKILA SWAIN [id number] 140 Seqirus (SEQ) complet ed Influenza , seasonal, injectabl e, preservat ekta free DoD Adenovirus, type 4 and type 7, live, oral 1 2016 AKILA SWAIN [id number] 143 Other (OTH) complet ed Adenoviru s, type 4 and type 7, live, oral DoD Results Combined list of recent chemistry, hematology and other laboratory results from Department of Defense and Veterans Affairs, ranging from 15 months to all on record, depending upon the facility. Order Name Results Value Reference Range Date Interpretation Specimen Comments Source Infectiou s Disease HIV-1/2 AG/AB 4G CDD LC NEGATIVE 09/03 Result Comment: Performed At: 1 [facility] [address] [place] [address] [address] [place] [address] RITA MOE PHD Ph:[phone] [facility] Infectiou s Disease Source of Test.[facility] Ind (09/03/23 12:30 PM) 09/03 N [facility] Vital Signs Combined list of inpatient and outpatient Vital Signs from Department of Defense and Veterans Affairs, ranging from 12 months to all on record, depending upon the facility. Vital Sign Value Date Comments Source Systolic Blood Pressure 126mm[Hg] 09/17/2023 18:19:00 Ambulatory Pharmacy Diastolic Blood Pressure 79mm[Hg] 09/17/2023 18:19:00 Ambulatory Pharmacy Mean Arterial Pressure, Calc 95mm[Hg] 09/17/2023 18:19:00 Ambulatory P harmacy Peripheral Pulse Rate 84bpm 09/17/2023 18:19:00 Ambulatory Pharmacy Respiratory Rate 14br/min 09/17/2023 18:19:00 Ambulatory Pharmacy Temperature Oral 37.1Cel 09/17/2023 18:19:00 Ambulatory Pharmacy BP Site 09/17/2023 18:19:00 Ambul atory Pharmacy Blood Pressure Manual 09/17/2023 18:19:00 Ambulatory Pharmacy Respiratory Rate 15br/min 03/06/2023 15:21:00 Ambulatory Pharmacy Systolic Blood Pressure 120mm[Hg] 03/06/2023 15:21:00 Ambulatory Pharmacy Diastolic Blood Pressure 81mm[Hg] 03/06/2023 15:21:00 Ambulatory Pharmacy Mean Arterial Pressure, Calc 94mm[Hg] 03/06/2023 15:21:00 Ambulatory P harmacy Peripheral Pulse Rate 74bpm 03/06/2023 15:21:00 Ambulatory Pharmacy Encounters Combined list of: 1) Encounters from Department of Veterans Affairs facilities going back up to thelast 18 months. 2) Encounters from the Department of [facility] facilities going back up to 280 months. Location Location Details Encounter Type Encounter Number Reason For Visit Attending Provider ADM Date DC Date Status Disposition Source [facility](Au diology [facility] 1523) OUTPATIENT [id number] ELIJAH CHRISTIANSON 01/03 Released w/o Limitations [facility]( Audiolo gy [facility] 1523) [facility](Op tometry [facility] 1523) OUTPATIENT [id number] YUNG MICHAEL 01/03 Released w/o Limitations [facility]( Optomet ry [facility] 1523) [facility](Im munizatio n 1523) OUTPATIENT [id number] Notes Entered by: OLIVE DE DIOS L 06 Jan 2017 1001 ------- ------- ------- ------- -- P4 Immuniz ations BERNARD KELLY 01/06 Released w/o Limitations [facility]( Immuniz ation 1523) [facility] Male) OUTPATIENT [id number] Notes Entered by: RAFIA DOMINGUEZ 06 Jan 2017 1350 ------- ------- ------- ------- -- [facility] w[facility] Lim[facility]( [facility] Male) [facility](Co aj (Quynh) 1007) OUTPATIENT [id number] RASH ON FACE MATEUS SHAVER 01/15 Released w/o Limitations [facility]( Courage (White) 1007) [facility](Pr ev Med Immunizat ions/237) OUTPATIENT [id number] Notes Entered by: Denzel BRITT 17 Jan 2017 1157 ------- ------- ------- ------- -- TST PPD TB Testing WILBERTO ANTOINETTE Paul 01/17 Released w/o Limitations [facility]( Prev Med Immuniz ations/ 237) [facility](Sp ecial Physicals [facility] 1007) OUTPATIENT [id number] KELVIN Peter 01/21 Released w/o Limitations [facility]( Special Physica ls NB 1007) [facility](Im munizatio n 1523) OUTPATIENT [id number] Notes Entered by: OLIVE DE DIOS 06 Feb 2017 1139 ------- ------- ------- ------- -- 5-2 Immuniz ations ELROY GARCIA 02/06 Released w/o Limitations [facility]( Immuniz ation 1523) [facility](Sp ecial Physicals [facility] 1007) OUTPATIENT [id number] DANIELA SHEA 02/12 Released w/o Limitations [facility]( Special Physica ls NB 1007) [facility] Undersea Medicine) OUTPATIENT [id number] Notes Entered by: JR WEBB 03 Jun 2017 1513 ------- ------- ------- ------- -- fever symptom s PAVANANTOINETTE TEIXEIRA Beverly 06/03 Sick at Home/Quarter s [facility] [place]([facility] C Underse a Medicin e) [facility] [place]([facility] Preventiv e Med) OUTPATIENT [id number] Notes Entered by: KUMAR APONTE 26 Sep 2017 1213 ------- ------- ------- ------- -- Flu Vx MARCOS APONTE 09/26 Released w/o Limitations [facility] [place]([facility] C Prevent ekta Med) [facility] [place]([facility]) OUTPATIENT [id number] Notes Entered by: THADDEUS ARROYO 18 Mar 2018 1200 ------- ------- ------- ------- -- twinrix #3 THADDEUS ARROYO 03/18 Released w/o Limitations [facility] [place]([facility]) [facility](SS Immunizat ion Cl) OUTPATIENT [id number] Notes Entered by: LULY GARCIA I 15 Jul 2018 1046 ------- ------- ------- ------- -- Flu Vaccine MARCOS GARCIA I 07/15 Released w/o Limitations [facility]( SS Immuniz ation Cl) [facility](SS Fam Med PCMH 1) OUTPATIENT [id number] Notes Entered by: LULY GARCIA I 09 Oct 2018 0848 ------- ------- ------- ------- -- Part 1 OSS MARCOS GARCIA I 10/09 Released w/o Limitations [facility]( SS Fam Med PCMH 1) [facility](SS Fam Med PCMH 1) OUTPATIENT [id number] Part 2 OSS JOHNSON SONG 10/14 Released w/o Limitations [facility]( SS Fam Med PCMH 1) [facility]) OUTPATIENT [id number] ANNUAL FRANK SHEPARD 11/12 Released w/o Limitations [facility]( [facility]) [facility](Gr Immunizat ion Cl) OUTPATIENT [id number] Notes Entered by: BUCKY HARVEY 27 Oct 2020 0922 ------- ------- ------- ------- -- COVID DOSE #1 ROCHELLE SONG DANIAL 10/27 Released w/o Limitations [facility]( Gr Immuniz ation Cl) [facility]) OUTPATIENT [id number] ANNUAL [employer] [place] CASSIE BECKTHADDEUS Lamont 11/06 Released w/o Limitations [facility]( [facility]) [facility](Gr Immunizat ion Cl) OUTPATIENT [id number] Notes Entered by: BUCKY HARVEY 22 Nov 2020 1330 ------- ------- ------- ------- -- COVID DOSE #2 VIANCA LEIGH 11/22 Released w/o Limitations [facility]( Immuniz ation Cl) [facility]( [facility]) OUTPATIENT [id number] ANNUAL/ [place] D[place] RICARDO 08/10 Released w/o Limitations [facility]( [facility]) [facility]( Immunizat ion Cl) OUTPATIENT [id number] Notes Entered by: MIREYA WALL 03 Oct 2021 1512 ------- ------- ------- ------- -- Moderna Booster MIREYA WALL 10/03 Released w/o Limitations [facility]( Immuniz ation Cl) [facility]( Chiroprac tic Cl) OUTPATIENT [id number] New Mid and upper back >2wks LEVELMARCOS 10/24 Released w/o Limitations [facility]( Chiropr actic Cl) [facility]( [facility]) OUTPATIENT [id number] ANH Jordan 11/08 Released w/o Limitations [facility]( [facility]) [facility]( Chiroprac tic Cl) OUTPATIENT [id number] f/u LEVEL, MARCOS R W 11/12 [facility] Limitations [facility] Procedures Combined list of: 1) Procedures from Department of Veterans Affairs facilities going back up to thelast 18 months, not all VA non-surgical procedures are included; 2) All procedures from the Department of Defense facilities. Procedure Procedure Type Code Date Perfomer Comments Sourc e No data available for this section [facility] IMMUNIZATION ADMINISTRATION (INCLUDES PERCUTANEOUS, INTRADERMAL, SUBCUTANEOUS, OR INTRAMUSCULAR INJECTIONS); 1 VACCINE (SINGLE OR COMBINATION VACCINE/TOXOID) 2017 DoD IMMUNIZATION ADMINISTRATION (INCLUDES PERCUTANEOUS, INTRADERMAL, SUBCUTANEOUS, OR INTRAMUSCULAR INJECTIONS); 1 VACCINE (SINGLE OR COMBINATION VACCINE/TOXOID) 2016 DoD IMMUNIZATION ADMINISTRATION (INCLUDES PERCUTANEOUS, INTRADERMAL, SUBCUTANEOUS, OR INTRAMUSCULAR INJECTIONS); EACH ADDITIONAL VACCINE (SINGLE OR COMBINATION VACCINE/TOXOID) 2016 DoD SKIN TEST; TUBERCULOSIS, INTRADERMAL 2016 [facility] PATIENT EDUCATION, NOT OTHERWISE CLASSIFIED, NON-PHYSICIAN PROVIDER, GROUP, PER SESSION 2016 DoD IMMUNIZATION ADMINISTRATION (INCLUDES PERCUTANEOUS, INTRADERMAL, SUBCUTANEOUS, OR INTRAMUSCULAR INJECTIONS); EACH ADDITIONAL VACCINE (SINGLE OR COMBINATION VACCINE/TOXOID) 2016 [facility] VIS FUNCT SCREEN,AUTOMAT/JAKE I-AUTOMAT BILAT QUANT DETERM VISUAL ACUITY,OCULAR ALIGN,COLOR VISION,PSEUDOISOCH ROMAT PLATES,& FIELD VIS (MAY INC ALL/SOME SCRN DETERM FOR CONTRAST SENSITIV,VIS UND GLARE) 2016 [facility] AUDIOMETRIC TESTING OF GROUPS 2016 DoD CHIROPRACTIC MANIPULATIVE TREATMENT (CMT); SPINAL, 3-4 REGIONS 2021 [facility] DETERMINATION OF REFRACTIVE STATE 2021 DoD CHIROPRACTIC MANIPULATIVE TREATMENT (CMT); SPINAL, 3-4 REGIONS 2021 DoD IMMUNIZATION ADM,IM INJECTION OF SEVERE AC RESPIRATORY SYNDROME CORONAVIR 2 (SARS-COV-2) (CORONAVIR DIS [COVID-19]) VACCINE,MRNA-LNP,S PIKE PROTEIN,PRESERVATI VE FREE,50 MCG/0.25 ML DOSAG,BOOSTER DOSE 2021 [facility] PURE TONE AUDIOMETRY (THRESHOLD), AUTOMATED; AIR ONLY 2020 [facility] SEVERE ACUTE RESPIRATORY SYNDROME CORONAVIRUS 2 (SARSCOV-2) (CORONAVIRUS DISEASE [COVID-19]) VACCINE, MRNALNP, SPIKE PROTEIN, PRESERVATIVE FREE, 100 MCG/0.5ML DOSAGE, FOR INTRAMUSCULAR USE 2020 [facility] PURE TONE AUDIOMETRY (THRESHOLD), AUTOMATED; AIR ONLY 2020 [facility] IMMUNIZATION ADM,INTRAMUSCULAR INJECTION OF SEVERE AC RESPIRATORY SYNDROME CORONAVIR 2 (SARSCOV-2) (CORONAVIR DIS [COVID-19]) VACCINE,MRNALNP,SP KAI PROT,PRESERVATIVE FREE,100 MCG/0.5ML DOSAG;1ST DOSE 2020 [facility] EDUCATION &TRAINING, PATIENT SELF-MGT QUALIFIED, NONPHYSICIAN HEALTH BOILER TESTER USING STANDARDIZED CURRICULUM, [id number] W THE PATIENT (COULD INCL CAREGIVER/FAMILY) EA 30 MIN; 2-4 PATIENTS 2018 [facility] ADMINISTRATION OF PATIENT-FOCUSED HEALTH RISK ASSESSMENT INSTRUMENT (EG, HEALTH HAZARD APPRAISAL) WITH SCORING AND DOCUMENTATION, PER STANDARDIZED INSTRUMENT 2018 [facility] IMMUNIZATION ADMINISTRATION (INCLUDES PERCUTANEOUS, INTRADERMAL, SUBCUTANEOUS, OR INTRAMUSCULAR INJECTIONS); 1 VACCINE (SINGLE OR COMBINATION VACCINE/TOXOID) 2017 [facility] Patient Counseling Medical Management Two To Four Patients Patient Counseling Medical Management Two To Four Patients [id number] 2018 FRANK PETIT [facility] Testing Audiometry Group Testing 10981 2018 FRANK PETIT [facility] Threshold Audiogram (Pure Tone) Automated Threshold Audiogram (Pure Tone) Automated 0208T 2018 FRANK PETIT [facility] Preventive Medicine Administration Of Health Risk Questionnaire Patient-Focused Preventive Medicine Administration Of Health Risk Questionnaire Patient-Focused [id number] 2018 VALDEZ GARCIA I [facility] Influenza Split Virus Vaccine IM Preserv Free 0.5mL Dosage Quadrivalent Influenza Split Virus Vaccine IM Preserv Free 0.5mL Dosage Quadrivalent 67527 2017 VALDEZ GARCIA I Influenza Seasonal, injectable quadrivalent - preservative free; Series #: 1; .5 mL; IM; Left Arm; Medical Simulation: Mechanology; Lot: [id number]; VIS given (Karley: 05/05/2015). DoD Immunization Administration By Injection, One Vaccine Immunization Administration By Injection, One Vaccine 03429 2017 VALDEZ GARCIA I DoD Hepatitis A And Hepatitis B (Intramuscular Use) Adult Dosage Hepatitis A And Hepatitis B (Intramuscular Use) Adult Dosage 34437 2017 THADDEUS ARROYO Hep A-Hep B; Series #: 3; 1.0 mL; IM; Left Arm; YogaTrailg: Mechanology; Lot: [id number]; VIS given (Karley: 04/17/16; 04/17/16). DoD Immunization Administration By Injection, One Vaccine Immunization Administration By Injection, One Vaccine [id number] THADDEUS ARROYO DoD Immunization Administration By Injection, One Vaccine Immunization Administration By Injection, One Vaccine 248322016 VALDEZ APONTE DoD Influenza Split Virus Vaccine IM Preserv Free 0.5mL Dosage Quadrivalent Influenza Split Virus Vaccine IM Preserv Free 0.5mL Dosage Quadrivalent 98922 2016 VALDEZ APONTE Influenza Seasonal, injectable quadrivalent - preservative free; Series #: 1; .5 mL; IM; Left Arm; [employer]: Mechanology; Lot: [id number]. [facility] Vaccines Viral Polio, Inactivated Vaccines Viral Polio, Inactivated 630202016 AKILA SWAIN IPV; Series #: 1; .5 mL; SC; Right Arm; Mfg: Sanofi Pasteur; Lot: [id number]; VIS given (Karley: 04/17/16; 08/03/15 - Multiple). [facility] Vaccines Viral Varicella (Active) Vaccines Viral Varicella (Active) 38709 2016 AKILA SWAIN Varicella; Series #: 2; .5 mL; SC; Left Arm; Mfg: Merck; Lot: [id number]; VIS given (Karley: 12/10/07). DoD Hepatitis A And Hepatitis B (Intramuscular Use) Adult Dosage Hepatitis A And Hepatitis B (Intramuscular Use) Adult Dosage 76447 2016 AKILA SWAIN Hep A-Hep B; Series #: 2; 1.0 mL; IM; Left Arm; [employer]il[employer]: Mechanology; Lot: [id number]; VIS given (Karley: 04/17/16; 04/17/16). DoD Immunization Administration By Injection, One Vaccine Immunization Administration By Injection, One Vaccine 03346 2016 [facility] [place] [facility] [place] By Injection, Each Additional Vaccine Immunization Administration By Injection, Each Additional Vaccine 97631 2016 [facility] [place] [facility] [place] Viral Measles, Mumps and Rubella, Live Vaccines Viral Measles, Mumps and Rubella, Live 18053 2016 AKILA SWAIN LINH MMR; Series #: 2; .5 mL; SC; Left Arm; Mfg: Merck; Lot: [id number]; VIS given (Karley: 01/17/12). [facility] Skin Test Anergy Tuberculin Intradermal Skin Test Anergy Tuberculin Intradermal 45515 2016 TL BRITT IPPD; Series #: 1; .1 mL; ID; Left Arm; Mfg: Sanofi Pasteur; Lot: [id number]; VIS given. [facility] Patient education, not otherwise cla ified, non-physician provider, group, per se ion 2016 RAFIA DOMINGUEZ [facility] Visual Function Screening Visual Function Screening 45631 2016 YUNG MICHAEL [facility] Physician Supervised Injection Intramuscular Antibiotic Physician Supervised Injection Intramuscular Antibiotic 53665 2016 AKILA SWAIN [facility] Injection, penicillin g benzathine, 100,000 units 2016 [facility] Vaccines Adenovirus Type 7 Live, For Oral Use Vaccines Adenovirus Type 7 Live, For Oral Use 53143 2016 [facility] Immunization Admin Intranasal / Oral Each Additional Vaccine Immunization Admin Intranasal / Oral Each Additional Vaccine 10529 2016 [facility] [place] [facility] [place] Adenovirus Type 4 Live, For Oral Use Vaccines Adenovirus Type 4 Live, For Oral Use 89522 2016 [facility] Influenza Split Virus Vaccine IM W/ Preserv Trivalent 0.50mL Dosage Influenza Split Virus Vaccine IM W/ Preserv Trivalent 0.50mL Dosage 19153 [facility] Immunization Administration By Injection, One Vaccine Immunization Administration By Injection, One Vaccine [id number] [facility] DoD Immunization Administration By Injection, Each Additional Vaccine Immunization Administration By Injection, Each Additional Vaccine 86044 2016 WILIAM AKILA MELTON DoD Vaccines Viral Measles, Mumps and Rubella, Live Vaccines Viral Measles, Mumps and Rubella, Live 04826 2016 WILIAMOLIVEESTEVAN MELTON MMR; Series #: 1; .5 mL; SC; Right Arm; Mfg: Merck; Lot: [id number]; VIS given (Karley: 01/17/12). [facility] Vaccines Viral Varicella (Active) Vaccines Viral Varicella (Active) 16218 2016 WILIAMOLIVEESTEVAN MELTON Varicella; Series #: 1; .5 mL; SC; Right Arm; Mfg: Merck; Lot: [id number]; VIS given (Karley: 12/10/07). [facility] Hepatitis A And Hepatitis B (Intramuscular Use) Adult Dosage Hepatitis A And Hepatitis B (Intramuscular Use) Adult Dosage 52918 2016 WILIAM AKILA MELTON Hep A-Hep B; Series #: 1; 1.0 mL; IM; Left Arm; Mfg: Mechanology; Lot: [id number]; VIS given (Karley: 04/17/16; 04/17/16). [facility] Meningococcal Polysaccharide Diphtheria Toxoid Conjugate Vaccine 2016 AKILA SWAIN Meningococcal MCV4P; Series #: 1; .5 mL; IM; Left Arm; Mfg: Sanofi Pasteur; Lot: [id number]; VIS given (Karley: 12/28/2015). [facility] Tdap Vaccine Tdap Vaccine 91640 2016 AKILA SWAIN Tdap; Series #: 1; .5 mL; IM; Right Arm; Mfg: Other; Lot: [id number]; VIS given (Karley: 11/22/14). [facility] Threshold Audiogram (Pure Tone) Threshold Audiogram (Pure Tone) 20476 2016 ELIJAH CHRISTIANSON DoD Audiometry Group Testing Audiometry Group Testing 73578 2016 ELIJAH CHRISTIANSON [facility] Threshold Audiogram (Pure Tone) Automated Threshold Audiogram (Pure Tone) Automated [id number] THADDEUS MILES [facility] Vaccine SARS-CoV-2 mRNA-LNP Humberto Protein Preservative Free 100mcg/0.5mL IM Second Dose Vaccine SARS-CoV-2 mRNA-LNP Humberto Protein Preservative Free 100mcg/0.5mL IM Second Dose [id number] VIANCA LEIGH [facility] Vaccine SARS-CoV-2 mRNA-LNP Humberto Protein Preservative Free 100mcg/0.5mL IM Vaccine SARS-CoV-2 mRNA-LNP Humberto Protein Preservative Free 100mcg/0.5mL IM 76183 VIANCA LEIGH COVID-19 Moderna; Series #: 2; 0.5 mL; IM; Left Arm; Mfg: Moderna What's Hot.; Lot: [id number]. [facility] Vaccine SARS-CoV-2 mRNA-LNP Humberto Protein Preservative Free 50mcg/0.25mL IM Vaccine SARS-CoV-2 mRNA-LNP Humberto Protein Preservative Free 50mcg/0.25mL IM 00859 MIREYA WALL COVID-19 Moderna; Series #: 3; 0.25 mL; IM; Left Arm; Mfg: Moderna What's Hot.; Lot: [id number]; VIS given (Karley: 05/25/2021). [facility] Vacc SARS-CoV-2 mRNA-LNP Humberto Protein Preservative Free 50mcg/0.25mL IM Booster Dose Vacc SARS-CoV-2 mRNA-LNP Humberto Protein Preservative Free 50mcg/0.25mL IM Booster Dose [id number] MIREYA WALL [facility] Chiropractic Manip Treatmt (CMT) Spinal [facility] Chiropractic Manip Treatmt (CMT) Spinal [facility] [place] [address] LEVEL, VALDEZ Zepeda [facility] Ophthalmological New Patient Start Comprehensive Care Ophthalmological New Patient Start Comprehensive Care [address] TRAMAINE PUENTE [facility] Determination Of Refractive State Determination Of Refractive State [address] TRAMAINE PUENTE [facility] Social History Combined list of available smoking, tobacco, and other social history from [facility] of Defense and Veterans Affairs facilities. Social History Type Response Date Comment Sourc e Male 09/13/2022 Ambulatory Pha rmacy Sexual Orientation Ambula tory Pharmacy Gender identity Ambulator y Pharmacy This section is an empty soc ial history section. DoD Assessment and Plan Combined list of future care activities from Department of Defense and Veterans Affairs facilities (e.g., assessment and plan notes, appointments, orders, and referrals). Additional future care activities may be listed in the Plan of Care section. 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 Patient denies significant medical or mental health concerns at this time that have?not been previously mentioned. DD Forms 2807-1 and 2697 were completed, signed, and to be uploaded into [employer] by press officer/ELEUTERIO. With information provided, there are no other apparent medical or mental health concerns that have not been identified, or previously stated, and member is cleared to separate from as soon as possible.? ? Final physical (DD Form 2808) form completed and to be uploaded into [employer] by press officer/MA. No significant medical or mental health problems identified, or stated, that would limit penitentiary/separation processing.? ? ? DEBO Blankenship, [facility] Nurse Practitioner [facility] Medicine [place], [place] ? ? ? Extracted from:Title: Cerumen removal (Ad 0nly) [facility] Author: JR WIGGINS AuD Date: 05/05/23 1.?Impacted cerumen in right ear Otoscopy: RIGHT:? impacted cerumen?LEFT:?canal clear and tympanic membrane visualized?? After discussion of potential risks and benefits, informed consent was obtained verbally from the patient??for cerumen management. ? Cerumen was removed from? ?right ear??by using the following method:?instrumentation such as curette/loop/spoon/foreceps, suction, lavageCerumen softener?was NOT used at today's appointment. Cerumen was removed w/out incident using suction and #7 Turner suction tube. Right TM visible post cerumen removal ? ? After cerumen removal, canal was clear and tympanic membranes were visualized in both ears. ? ? The cerumen was removed by?undersigned property accountant. The supervising property accountant of record for cerumen management was _. ? Plan: ? ?Patient to RTC in 6 months for routine cerumen management ? ? PO2 to return to Dept for follow-up #1 audio re-check for termination purposes ? Cheri_Noé James Doctor of Audiology Audiology Dept. [facility] Protection JES RANDLE [facility] [phone] ? Extracted from:Title: Office Clinic Note Author: AUBREE OSMAN Date: 05/05/23 Encounter for examination and observation for other specified reasons Hearing WNL. A copy of hearing test was given to patient, scanned into [email or web address], and given to medical records. Patient displayed an early warning shift in his left ear based on his 2017 reference audiogram. Patient acknowledged his results. Extracted from:Title: AUDIOLOGY NOTE [id number] Author: DEE RICARDO Date: 05/01/23 Encounter for examination and observation for other specified reasons Hearing WNL.?Patient has a Positive Shift in Left Ear and an Early Warning Shift in Right Ear.??Sponsorship Manager examined patient's ears for cerumen.? Patient was referred to see Doctor Wiggins for?an ear cleaning?and?a follow up examination. Patient acknowledged change in hearing.?? A copy of the hearing test was given to member and a copy of the hearing test was scanned into [employer]. 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 A screening of the patient s health record along with answers inputted into the electronic periodic health assessment was completed.? ? EPHA certified. Occ health questionnaires reviewed. Immunizations current. Labs current. Dental current. Optometry current. Audiology current. Reports no physical or psychological concerns. The member has been informed that completion of any lab work, immunizations, recommended special studies, or screening are to be performed within the next 30 days and that they are personally responsible for his/her individual medical readiness. The service unit operator oil well stated understanding. FIT FOR DUTY. -The patient was found to be physically capable of performing assigned and prospective duties without limitations.? -Directed to IB for MH concerns, no limitations to duty found. -Patient does not require any additional medical or mental health consults or referrals.? -Educated patient on mental health and medical services available. -Pt will be notified of any pertinent abnormal lab work. ? Regan Kim, , DO GARZON, AG, FRANNY [place], [place] ? ? 11/01/2024 Ambulatory Pharmacy Functional Status Combined list of recent functional and cognitive assessments recorded at [facility] of Defense and Veterans Affairs (VA).VA Functional Tappan Measurement (FIM) Scale: 1 = Total Assistance (Subject = 0% +), 2 = Maximal Assistance (Subject = 25% +), 3 = Moderate Assistance (Subject = 50% +), 4 = Minimal Assistance (Subject = 75% +), 5 = Supervision, 6 = Modified Tappan (Device), 7 = Complete Tappan (Timely, Safely). Assessment Date/Time Source Assessment Type Assessment Skill Assessment Score Assessment Details No data available for this section
[2024-11-01 12:01] LABS: Estimated Average Glucose 111 mg/dL; Hemoglobin A1C 136.3889 umol/L; Hemoglobin A1c % 5.5 % (<6.0)
[2024-11-01 12:54] LABS: Alanine Aminotransferase 30 U/L (0-40); Albumin Level 4.3 g/dL (3.5-5.0); Alkaline Phosphatase 76 U/L (39-117); Anion Gap 10 (12-20); Aspartate Amino Transferase 23 U/L (5-37); Bilirubin Total 0.4 mg/dL (0.0-1.0); Blood Urea Nitrogen 13 mg/dL (9-16); Calcium 8.7 mg/dL (8.4-10.2); Carbon Dioxide 26 mmol/L (22-29); Chloride 108 mmol/L (96-108); Cholesterol 157 mg/dL (<200); Estimated Glomerular Filt Rate > 60; Glucose Fasting 79 mg/dL (60-99); HDL Cholesterol 55 mg/dL (>40); LDL Cholesterol Calculated 91 mg/dL (<100); Potassium 3.7 mmol/L (3.3-5.1); Sodium 140 mmol/L (135-145); TSH reflex Free T4 0.81 uIU/mL (0.32-4.0); Total Protein 7.5 g/dL (6.5-8.0); Triglycerides 56 mg/dL (<150)
[2024-11-01 14:33] LABS: Appearance Urine Turbid; Color Urine Yellow; Glucose Urine UA Negative (Negative); Leukocyte Esterase Urine Negative (Negative); Nitrite Urine Negative (Negative); PH 5.5 (5.0-9.0); Specific Gravity - Urine >= 1.030 (1.005-1.025); Urine Blood Negative (Negative); Urine Ketones Negative (Negative); Urine Protein Trace mg/dL (Neg-Trace)
== END 2024-11-01 10:24 | disposition home or self-care (01) ==
LOC: HO.WFDLDS 10:23
PROVIDERS: Visit Provider Family Medicine
DX: Z00.00 Encounter for general adult medical examination without abnormal findings (principal); R73.01 Impaired fasting glucose
CPT/HCPCS: 36415; 80053; 80061; 81003; 83036; 84443

== ENCOUNTER 2024-11-02 15:44 | Outpatient (AMB) | payer BC, SELFPAY ==
--- NOTE | 2024-11-02 15:46 | MHC.PC.OV ---
Vital Signs 11/02/24 15:52 Height 5 ft 10 in Weight 257 lb 4 oz BMI 36.9 BP 117/60 Blood Pressure Location Lt brachial Position Sitting Respiration 16 Pulse 87 Pulse Source Pulse Oximeter Temp 98.2 F Temp Source Oral Pulse Oximetry (%) 96 Oxygen Delivery Method Room Air Intake Visit Reasons: f/u pre-diabetes Intake Note: patient here for follow up on pre-diabetes Tire Rebuilder Required: No Allergies No Known Allergies Allergy (Verified 11/02/24 15:51) Tobacco use date assessed: 11/02/24 Dental Screening Dental Screen Date: 11/02/24 Did you have a dental visit in the last 12 months?: No Did you have a dental problem in the last 6 months where you did not have access to dental care?: No Was dental information given to patient?: Patient has dentist HPI f/u pre-diabetes HPI Details 29 y/o male presents to f/u pre-diabetes, labs. Labs drawn 11/01/24. Reviewed labs with pt. A1c 5.5%. Triglycerides 56. TC 157. LDL 91. HDL 55. HPI Comments History of Present Illness Details Documentation assistance for Maximino Zeng MD, was provided by Sonido Kessler, Client Portfolio Manager on 11/02/2024 at 4:11 PM EST. I, Dr. Zeng, have read, observed, and verified documentation. [facility] Medical History No pertinent past medical history Surgical History No pertinent past surgical history Family History Father Diabetes HTN (hypertension) Other Mental health disorder Substance abuse Social History Housing: House Alcohol intake: current Alcohol intake frequency: holidays/special occasions only Patient Tobacco Use Status: Former Tobacco user e-Cigarette/Vaping Use: Currently Using service: Yes Current occupational status: employed Current occupation: [employer] Cognitive needs: No Hearing needs: No Vision needs: No Questionnaire PHQ-9 Over the last 2 weeks, how often have you been bothered by any of the following problems? 1. Little interest or pleasure in doing things: more than half the days 2. Feeling down, depressed, or hopeless: several days 3. Trouble falling or staying asleep, or sleeping too much: several days 4. Feeling tired or having little energy: more than half the days 5. Poor appetite or overeating: more than half the days 6. Feeling bad about yourself - or that you are a failure or have let yourself or your family down: more than half the days 7. Trouble concentrating on things, such as reading the newspaper or watching television: more than half the days 8. Moving or speaking so slowly that other people could have noticed. Or the opposite - being so fidgety or restless that you have been moving around a lot more than usual: not at all 9. Thoughts that you would be better off or of hurting yourself in some way: not at all Total score: 12 Source: Developed by Drs. Clement Velez, Sheyla Billings, Priyank Camara and colleagues, with an educational nam from [employer]. Thrive Questionnaire Date Thrive assessed: 12/17/23 I am a: Patient What is your living situation today?: I have a steady place to live Within the past 12 months, did the food you bought not last and you didn't have the money to get more?: Never true Within the past 12 months, did you worry whether your food would run out before you got money to buy more?: Never true Do you have trouble paying for medicines?: No Do you have trouble getting transportation to medical appointments?: No Do you have trouble paying your heating and electricity bill?: No Do you have trouble taking care of your child, family member or friend?: No Do you have trouble with day-to-day activities such as bathing, preparing meals, shopping, managing finances, etc.?: No Are you currently unemployed and looking for a job?: No Are you interested in more education?: Yes Please select the resources that you would like help with: Education Currently or been in a relationship where the following occur: No concerns reported THRIVE Score: 0 AUDIT C Alcohol Use Questionnaire (AUDIT-C) 1. How often do you have a drink containing alcohol?: 2-3 times a week 2. How many drinks containing alcohol do you have on a typical day when you are drinking?: 3 or 4 3. How often do you have six or more drinks on one occasion?: Monthly Total Score: 6 NICHOLAS-7 AMB Questionnaire NICHOLAS-7 Date NICHOLAS - 7 assessed: 12/17/23 Feeling nervous, anxious, or on edge: 2 = More than half the days Not being able to stop or control worryin = Several days Worrying too much about different things: 1 = Several days Trouble relaxin = Several days Being so restless that it is hard to sit still: 0 = Not at all Becoming easily annoyed or irritable: 2 = More than half the days Feeling afraid as if something awful might happen: 1 = Several days Total NICHOLAS-7 score (0-4 normal; 5-9 mild; 10-14 moderate; 15-21 severe): 8 Source: Developed by Drs. Clement Velez, Sheyla Billings, Priyank Camara and colleagues, with an educational nam from [employer]. Physical exam (Primary Care) Vital Signs: Last Vital Signs Temp 98.2 F 11/02/24 15:52 Pulse 87 11/02/24 15:52 Resp 16 11/02/24 15:52 BP 117/60 11/02/24 15:52 Pulse Ox 96 11/02/24 15:52 Oxygen Delivery Method Room Air 11/02/24 15:52 BMI result Body Mass Index 36.9 Tobacco/Smoking Status: Tobacco use Status Tobacco use date assessed 11/02/24 11/02/24 15:55 Patient Tobacco Use Status Former Tobacco user 11/02/24 15:47 e-Cigarette/Vaping Use Currently Using 11/02/24 15:47 PHQ-9: PHQ-9 Score PHQ-9: Total score 12 11/02/24 15:47 Thrive Assessment: Date of Thrive Assessment Date Thrive assessed 12/17/23 11/02/24 15:47 Currently or been in a relationship where the following occur: No concerns reported Coding Level of Care Code Est Pt Level 3 (38745) Diagnoses Pre-diabetes R73.03 Assessment & Plan Assessment & Plan (1) Pre-diabetes: Code(s): R73.03 - Prediabetes Category: Medical Plan: A1c?has?improved?and?is?now?at?5.5% Encouraged?him?to?keep?working?diet?low?in?sugars?and?starches,?work?exercise?weight?loss Will?monitor?periodically Plan Reviewed?his?other?labs?with?him?as?well. No?concerns?today
--- OUTSIDE RECORDS SUMMARY | 2024-11-02 15:50 | XMS_ITS | Continuity of Care Document ---
Author Name [facility] Organization [facility] Care Team Providers Care Hydroponics Worker Name Role Phone [facility] Unavailable Unavailable Medications Combined list of outpatient [...] TORRENT PHARMAC, 500 ea. BOTTLE Cancele d [id number] : 2023 0 Pharmac y Data Transac tion Service Facilit y CITALOPRAM HBR (CITALOPRAM HYDROBROMID E), 20MG, TABLET, ORAL, TORRENT PHARMAC, 500 ea. BOTTLE Cancele d [id number] : 2023 0 Pharmac y Data Transac tion Service Facilit y CITALOPRAM HBR (CITALOPRAM HYDROBROMID E), 20MG, TABLET, ORAL, TORRENT PHARMAC, 500 ea. BOTTLE Active [id number] 2023 30 Pharmac y Data Transac tion Service Facilit y CITALOPRAM HBR (CITALOPRAM HYDROBROMID E), 20MG, TABLET, ORAL, TORRENT PHARMAC, 500 ea. BOTTLE Active [id number] 2022 30 Pharmac y Data Transac tion Service Facilit y gabapentin 300 mg oral capsule 1 cap(s), Oral, TID, 0 total refill(s ), Maintena nce Oral (given by mouth) Ordered [id number] [facility] [place] HYDROXYZINE HCL (hydroxyzin e HCl), 50 MG, TABLET, ORAL, AUROBINDO PHARM, 500 ea. BOTTLE Cancele d [id number] : 2023 0 Pharmac y Data Transac tion Service Facilit y MELOXICAM (MELOXICAM) , 15 MG, TABLET, ORAL, CIPLA [email or web address] 100 ea. BOTTLE Cancele d [id number] : 2023 0 Pharmac y Data Transac tion Service Facilit y meloxicam 15 mg oral tablet 1 tab(s), Oral, Daily, 0 total refill(s ), Maintena nce Oral (given by mouth) Ordered [id number] [facility] OMEPRAZOLE (omeprazole ), 20 MG, CAPSULE DR, ORAL, RISING PHARM, 1000 ea. BOTTLE Cancele d [id number] : 2023 0 Pharmac y Data Transac tion Service Facilit y OMEPRAZOLE (omeprazole ), 20 MG, CAPSULE DR, ORAL, RISING PHARM, 1000 ea. BOTTLE Cancele d [id number] : 2023 0 Pharmac y Data Transac tion Service Facilit y OMEPRAZOLE (omeprazole ), 20 MG, CAPSULE DR, ORAL, RISING PHARM, 1000 ea. BOTTLE Active [id number] 2022 30 Pharmac y Data Transac tion Service Facilit y OMEPRAZOLE (omeprazole ), 20 MG, CAPSULE DR, ORAL, RISING PHARM, 1000 ea. BOTTLE Active [id number] 2023 30 Pharmac y Data Transac tion Service Facilit y Allergies, Adverse Reactions, Alerts Combined list of allergies from Department of Defense and Veterans Affairs facilities. It does not include entries that were removed or entered in error. Substance Category Reaction Severity Reaction type Status Date Reported Comments Source No Known Allergies Drug allergy (disorder) active 01/21/[address] [facility] Immunizations Combined list of available immunizations from the Department of Defense and Veterans Affairs facilities. 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 (MOD) complet ed SARS-COV- 2 (COVID-19 ) vaccine, mRNA, spike protein, LNP, preservat ekta free, 100 mcg or 50 mcg dose DoD influenza, injectable, quadrivalent- pf 2020 [id number] Seqirus complet ed influenza , injectabl e, quadrival ent-pf 07/31/21 Given Ambulat ory Pharmac y Influenza, injectable, quadrivalent, preservative free 0 2020 [id number] Seqirus (SEQ) comple t ed Influenza , injectabl e, quadrival ent, preservat ekta free DoD COVID Vaccine Moderna 2020 zzLef t Arm [id number] complet ed COVID Vaccine Moderna 11/22/20 Given Ambulat ory Pharmac y SARS-COV-2 (COVID-19) vaccine, mRNA, spike protein, LNP, preservative free, 100 mcg or 50 mcg dose 2 2020 MARLENE HARVEY I [id number] Moderna [employer] (MOD) complet ed SARS-COV- 2 (COVID-19 ) vaccine, mRNA, spike protein, LNP, preservat ekta free, 100 mcg or 50 mcg dose DoD COVID Vaccine Moderna 2020 [id number] complet ed COVID Vaccine Moderna 10/26/20 Given Ambulat ory Pharmac y SARS-COV-2 (COVID-19) vaccine, mRNA, spike protein, LNP, preservative free, 100 mcg or 50 mcg dose 1 2020 [id number] 207 Moderna [employer] (MOD) complet ed SARS-COV- 2 (COVID-19 [...] free DoD influenza, injectable, quadrivalent- pf 2018 [id number] 150 Seqirus complet ed influenza , injectabl e, quadrival ent-pf 08/16/19 Given Ambulat ory Pharmac y Influenza, injectable, quadrivalent, preservative free 0 2018 [id number] 150 Seqirus (SEQ) complet ed Influenza [...] varicella virus vaccine 2016 zzLef t Arm [id number] Merck & Company Inc complet ed varicella virus vaccine 02/06/17 Given Ambulat ory Pharmac y measles/mumps /rubella virus vaccine 2016 zzLef t Arm [id number] Merck & Company Inc complet ed measles/m umps/rube lla virus vaccine 02/06/17 Given Ambulat ory Pharmac y poliovirus vaccine, inactivated 2016 zzRig ht Arm [id number] 10 sanofi pasteur complet ed polioviru s vaccine, inactivat ed 02/06/17 Given Ambulat ory Pharmac y measles, mumps and rubella virus vaccine 2 2016 AKILA SWAIN [id number] 03 Merck (MSD) complet ed measles, mumps and rubella virus vaccine DoD poliovirus vaccine, inactivated 1 2016 AKILA SWAIN [id number] 10 Sanofi Pasteur (PMC) complet ed polioviru s vaccine, inactivat ed DoD varicella virus vaccine 2 2016 AKILA SWAIN [id number] 21 Merck (MSD) complet ed varicella virus vaccine DoD hepatitis A and hepatitis B vaccine 2 2016 AKILA SWAIN [id number] [facility] ([facility]) complet ed hepatitis A and hepatitis B vaccine DoD tuberculin purified protein derivative 2016 zzLef t Arm [id number] 96 sanofi pasteur complet ed Patient Tolerance : Negative Ambulat ory Pharmac y tuberculin skin test; purified protein derivative solution, intradermal 0 2016 TL BRITT [id number] 96 Sanofi Pasteur (PMC) complet ed tuberculi n skin test; purified protein derivativ e solution, intraderm al DoD varicella virus vaccine 2016 zzRig ht Arm [id number] 21 Merck & Company Inc complet ed varicella virus vaccine 01/06/17 Given Ambulat ory Pharmac y hepatitis A-hepatitis B vaccine 2016 zzLef t Arm [id number] 104 GlaxoSmithKli ne complet ed hepatitis A-hepatit is B vaccine 01/06/17 Given Ambulat ory Pharmac y measles/mumps /rubella virus vaccine 2016 [facility] [id number] 03 Merck & Company Inc complet ed measles/m umps/rube lla virus vaccine 01/06/17 Given Ambulat ory Pharmac y meningococcal A,C,Y,W-135 (MCV4P) 2016 zDavi t Arm [id number] 114 sanofi pasteur complet ed meningoco ccal A,C,Y,W-1 35 (MCV4P) 01/06/17 Given Ambulat ory Pharmac y tetanus, diphtheria, acellular pertu is 2016 [facility] [id number] 115 Unknown complet ed tetanus, diphtheri a, acellular pertussis 01/06/17 Given Ambulat ory Pharmac y adenovirus vaccine, live 2016 [id number] 143 Unknown complet ed adenoviru s vaccine, live 01/06/17 Given Ambulat ory Pharmac y influenza, seasonal, injectable-pf 2016 zzL t Arm [id number] 140 Seqirus complet ed influenza , seasonal, injectabl e-pf 01/06/17 Given Ambulat ory Pharmac y measles, mumps and rubella virus vaccine 1 2016 AKILA SWAIN [id number] 03 Merck (MSD) complet ed measles, mumps and rubella virus vaccine DoD varicella virus vaccine 1 2016 AKILA SWAIN [id number] 21 Merck (MSD) complet ed varicella virus vaccine DoD hepatitis A and hepatitis B vaccine 1 2016 AKILA SWAIN [id number] 104 SmithKline (SKB) complet ed hepatitis A and hepatitis B vaccine DoD meningococcal polysaccharid e (groups A, C, Y and W-135) diphtheria toxoid conjugate vaccine (MCV4P) 1 2016 AKILA SWAIN [id number] 114 Sanofi Pasteur (PMC) complet ed meningoco [...] injectable, preservative free 1 2016 AKILA SWAIN [id number] 140 Seqirus (SEQ) complet ed Influenza , seasonal, injectabl e, preservat ekta free DoD Adenovirus, type 4 and type 7, live, oral 1 2016 AKILA SWAIN [id number] 4 143 Other (OTH) complet ed Adenoviru [...] NEGATIVE 09/03 Result Comment: Performed At: 1 [facility] [address] [place] [address] [address] [place] [address] RITA MOE PHD Ph:[phone] [facility] Infectiou s Disease [...] months. 2) Encounters from the Department of [facility] facilities going back up to 280 months. Location Location Details Encounter Type Encounter Number Reason For Visit Attending Provider ADM Date DC Date Status Disposition Source [facility](Au diology [facility] 1523) OUTPATIENT [id number] ELIJAH CHRISTIANSON 01/03 Released w/o Limitations [facility]( Audiolo gy [facility] 1523) [facility](Op tometry [facility] 1523) OUTPATIENT [id number] YUNG MICHAEL 01/03 Released w/o Limitations [facility]( Optomet ry [facility] 1523) [facility](Im munizatio n 1523) OUTPATIENT [id number] Notes Entered by: OLIVE DE DIOS L 06 Jan 2017 1001 ------- ------- ------- ------- -- P4 Immuniz ations BERNARD KELLY 01/06 Released w/o Limitations [facility]( Immuniz ation 1523) [facility] Male) OUTPATIENT [id number] Notes Entered by: RAFIA DOMINGUEZ 06 Jan 2017 1350 ------- ------- ------- ------- -- [facility]( [facility] Male) [facility](Co aj (Quynh) 1007) OUTPATIENT [id number] RASH ON FACE MATEUS SHAVER 01/15 Released w/o Limitations [facility]( Courage (White) 1007) [facility](Pr ev Med Immunizat ions/237) OUTPATIENT [id number] Notes Entered by: Denzel BRITT 17 Jan 2017 1157 ------- ------- ------- ------- -- TST PPD TB Testing WILBERTO ANTOINETTE Paul 01/17 Released w/o Limitations [facility]( Prev Med Immuniz ations/ 237) [facility](Sp ecial Physicals [facility] 1007) OUTPATIENT [id number] KELVIN Peter 01/21 Released w/o Limitations [facility]( Special Physica ls [place] 1007) [facility](Im munizatio n 1523) OUTPATIENT [id number] Notes Entered by: OLIVE DE DIOS 06 Feb 2017 1139 ------- ------- ------- ------- -- 5-2 Immuniz ations ELROY GARCIA 02/06 Released w/o Limitations [facility]( Immuniz ation 1523) [facility](Sp ecial Physicals [facility] 1007) OUTPATIENT [id number] DANIELA SHEA 02/12 Released w/o Limitations [facility]( Special Physica ls [place] 1007[facility] [id number] Notes Entered by: JR WEBB 03 Jun 2017 1513 ------- ------- ------- ------- -- fever symptom s PAVANANTOINETTE TEIXEIRA Beverly 06/03 Sick at Home/Quarter s [facility] [place]([facility] Underse a Medicin e) [facility] [place]([employer] Preventiv e Med) OUTPATIENT [id number] Notes Entered by: KUMAR APONTE 26 Sep 2017 1213 ------- ------- ------- ------- -- Flu Vx MARCOS APONTE 09/26 Released w/o Limitations [facility] [place]([facility] Prevent ekta Med) [facility] [place]([facility]) OUTPATIENT [id number] Notes Entered by: THADDEUS ARROYO 18 Mar 2018 1200 ------- ------- ------- ------- -- twinrix #3 THADDEUS ARROYO 03/18 Released w/o Limitations [facility] [place]([facility]) [facility](SS Immunizat ion Cl) OUTPATIENT [id number] Notes Entered by: LULY GARCIA I 15 Jul 2018 1046 ------- ------- ------- ------- -- Flu Vaccine MARCOS GARCIA I 07/15 Released w/o Limitations [facility]( SS Immuniz ation Cl) [facility](SS Fam Med PCMH 1) OUTPATIENT [id number] Notes Entered by: LULY GARCIA I 09 Oct 2018 0848 ------- ------- ------- ------- -- Part 1 OSS MARCOS GARCIA I 10/09 Released w/o Limitations [facility]( SS Fam Med PCMH 1) [facility](SS Fam Med PCMH 1) OUTPATIENT [id number] Part 2 OSS JOHNSON SONG 10/14 Released w/o Limitations [facility]( SS Fam Med PCMH 1) [facility]) OUTPATIENT [id number] ANNUAL FRANK SHEPARD 11/12 Released w/o Limitations [facility]( [facility]) [facility](Gr Immunizat ion Cl) OUTPATIENT [id number] Notes Entered by: BUCKY HARVEY 27 Oct 2020 0922 ------- ------- ------- ------- -- COVID DOSE #1 ROCHELLE SONG DANIAL 10/27 Released w/o Limitations [facility]( Gr Immuniz ation Cl) [facility]) OUTPATIENT [id number] ANNUAL [place] CASSIE BECKTHADDEUS Lamont 11/06 Released w/o Limitations [facility]( [facility]) [facility](Gr Immunizat ion Cl) OUTPATIENT [id number] Notes Entered by: BUCKY HARVEY 22 Nov 2020 1330 ------- ------- ------- ------- -- COVID DOSE #2 VIANCA LEIGH 11/22 Released w/o Limitations [facility]( Immuniz ation Cl) [facility]( [facility]) OUTPATIENT [id number] ANNUAL/ [place] DEE RICARDO 08/10 Released w/o Limitations [facility]( [facility]) [facility]( Immunizat ion Cl) OUTPATIENT [id number] Notes Entered by: MIREYA WALL 03 Oct 2021 1512 ------- ------- ------- ------- -- Moderna Booster MIREYA WALL 10/03 Released w/o Limitations [facility]( Immuniz ation Cl) [facility]( Chiroprac tic Cl) OUTPATIENT [id number] New Mid and upper back >2wks LEVELMARCOS 10/24 Released w/o Limitations [facility]( Chiropr actic Cl) [facility]) OUTPATIENT [id number] ANH Jordan 11/08 Released w/o Limitations [facility]( [facility]( Chiroprac tic Cl) OUTPATIENT [id number] f/u LEVEL, MARCOS R W 11/12 Released w/o Limitations [facility] [place]( Chiropr actic Cl) Procedures Combined list of: 1) Procedures from Department of Veterans Affairs facilities going back up to thelast 18 months, not all VA non-surgical procedures are included; 2) All procedures from the Department of Defense facilities. Procedure Procedure Type Code Date Perfomer Comments Sour e IMMUNIZATION ADMINISTRATION (INCLUDES PERCUTANEOUS, INTRADERMAL, SUBCUTANEOUS, OR INTRAMUSCULAR INJECTIONS); 1 VACCINE (SINGLE OR COMBINATION VACCINE/TOXOID) 2017 DoD IMMUNIZATION ADMINISTRATION (INCLUDES PERCUTANEOUS, INTRADERMAL, SUBCUTANEOUS, OR INTRAMUSCULAR INJECTIONS); 1 VACCINE (SINGLE OR COMBINATION VACCINE/TOXOID) 2016 DoD IMMUNIZATION ADMINISTRATION (INCLUDES PERCUTANEOUS, INTRADERMAL, SUBCUTANEOUS, OR INTRAMUSCULAR INJECTIONS); EACH ADDITIONAL VACCINE (SINGLE OR COMBINATION VACCINE/TOXOID) 2016 DoD SKIN TEST; TUBERCULOSIS, INTRADERMAL 2016 [facility] PATIENT EDUCATION, NOT OTHERWISE CLASSIFIED, NON-PHYSICIAN PROVIDER, GROUP, PER SESSION 2016 DoD IMMUNIZATION ADMINISTRATION (INCLUDES PERCUTANEOUS, INTRADERMAL, SUBCUTANEOUS, OR INTRAMUSCULAR INJECTIONS); EACH ADDITIONAL VACCINE (SINGLE OR COMBINATION VACCINE/TOXOID) 2016 [facility] VIS FUNCT SCREEN,AUTOMAT/JAKE I-AUTOMAT BILAT QUANT DETERM VISUAL ACUITY,OCULAR ALIGN,COLOR VISION,PSEUDOISOCH ROMAT PLATES,& FIELD VIS (MAY INC ALL/SOME SCRN DETERM FOR CONTRAST SENSITIV,VIS UND GLARE) 2016 [facility] AUDIOMETRIC TESTING OF GROUPS 2016 DoD CHIROPRACTIC MANIPULATIVE TREATMENT (CMT); SPINAL, 3-[address] [facility] DETERMINATION OF REFRACTIVE STATE 2021 DoD CHIROPRACTIC MANIPULATIVE TREATMENT (CMT); SPINAL, 3-4 REGIONS 2021 DoD IMMUNIZATION ADM,IM INJECTION OF SEVERE AC RESPIRATORY SYNDROME CORONAVIR 2 (SARS-COV-2) (CORONAVIR DIS [COVID-19]) VACCINE,MRNA-LNP,S PIKE PROTEIN,PRESERVATI VE FREE,50 MCG/0.25 ML DOSAG,BOOSTER DOSE 2021 [facility] PURE TONE AUDIOMETRY (THRESHOLD), AUTOMATED; AIR ONLY 2020 [facility] SEVERE ACUTE RESPIRATORY SYNDROME CORONAVIRUS 2 (SARSCOV-2) (CORONAVIRUS DISEASE [COVID-19]) VACCINE, MRNALNP, SPIKE PROTEIN, PRESERVATIVE FREE, 100 MCG/0.5ML DOSAGE, FOR INTRAMUSCULAR USE 2020 [facility] PURE TONE AUDIOMETRY (THRESHOLD), AUTOMATED; AIR ONLY 2020 DoD IMMUNIZATION ADM,INTRAMUSCULAR INJECTION OF SEVERE AC RESPIRATORY SYNDROME CORONAVIR 2 (SARSCOV-2) (CORONAVIR DIS [COVID-19]) VACCINE,MRNALNP,SP KAI PROT,PRESERVATIVE FREE,100 MCG/0.5ML DOSAG;1ST DOSE 2020 [facility] EDUCATION &TRAINING, PATIENT SELF-MGT QUALIFIED, NONPHYSICIAN HEALTH CHIEF COUNSEL USING STANDARDIZED CURRICULUM, MTFG-EL-TABW W THE PATIENT (COULD INCL CAREGIVER/FAMILY) EA 30 MIN; 2-[address] [facility] ADMINISTRATION OF PATIENT-FOCUSED HEALTH RISK ASSESSMENT INSTRUMENT (EG, HEALTH HAZARD APPRAISAL) WITH SCORING AND DOCUMENTATION, PER STANDARDIZED INSTRUMENT 2018 [facility] IMMUNIZATION ADMINISTRATION (INCLUDES PERCUTANEOUS, INTRADERMAL, SUBCUTANEOUS, OR INTRAMUSCULAR INJECTIONS); 1 VACCINE (SINGLE OR COMBINATION VACCINE/TOXOID) 2017 [facility] Patient Counseling Medical Management Two To Four Patients Patient Counseling Medical Management Two To Four Patients [id number] [facility] Audiometry Group Testing Audiometry Group Testing [address] [facility] Threshold Audiogram (Pure Tone) Automated Threshold Audiogram (Pure Tone) Automated 0208T [address] [facility] Preventive Medicine Administration Of Health Risk Questionnaire Patient-Focused Preventive Medicine Administration Of Health Risk Questionnaire Patient-Focused [id number] [facility] Influenza Split Virus Vaccine IM Preserv Free 0.5mL Dosage Quadrivalent Influenza Split Virus Vaccine IM Preserv Free 0.5mL Dosage Quadrivalent 86940 2017 VALDEZ GARCIA I Influenza Seasonal, injectable quadrivalent - preservative free; Series #: 1; .5 mL; IM; Left Arm; [facility]: [employer]; Lot: [id number]; VIS given (Karley: 05/05/2015). DoD Immunization Administration By Injection, One Vaccine Immunization Administration By Injection, One Vaccine 41758 2017 VALDEZ GARCIA I DoD Hepatitis A And Hepatitis B (Intramuscular Use) Adult Dosage Hepatitis A And Hepatitis B (Intramuscular Use) Adult Dosage 21403 2017 THADDEUS ARROYO Hep A-Hep B; Series #: 3; 1.0 mL; IM; Left Arm; Mfg: [employer]; Lot: [id number]; VIS given (Karley: 04/17/16; 04/17/16). DoD Immunization Administration By Injection, One Vaccine Immunization Administration By Injection, One Vaccine 185902017 THADDEUS ARROYO DoD Immunization Administration By Injection, One Vaccine Immunization Administration By Injection, One Vaccine 186722016 VALDEZ APONTE DoD Influenza Split Virus Vaccine IM Preserv Free 0.5mL Dosage Quadrivalent Influenza Split Virus Vaccine IM Preserv Free 0.5mL Dosage Quadrivalent 73404 2016 VALDEZ APONTE Influenza Seasonal, injectable quadrivalent - preservative free; Series #: 1; .5 mL; IM; Left Arm; Mfg: [employer]; Lot: [id number]. [facility] Vaccines Viral Polio, Inactivated Vaccines Viral Polio, Inactivated 928282016 AKILA SWAIN IPV; Series #: 1; .5 mL; SC; Right Arm; Mfg: Sanofi Pasteur; Lot: [id number]; VIS given (Karley: 04/17/16; 08/03/15 - Multiple). [facility] Vaccines Viral Varicella (Active) Vaccines Viral Varicella (Active) 229622016 AKILA SWAIN Varicella; Series #: 2; .5 mL; SC; Left Arm; Mfg: Merck; Lot: [id number]; VIS given (Karley: 12/10/07). DoD Hepatitis A And Hepatitis B (Intramuscular Use) Adult Dosage Hepatitis A And Hepatitis B (Intramuscular Use) Adult Dosage 64224 2016 AKILA SWAIN Hep A-Hep B; Series #: 2; 1.0 mL; IM; Left Arm; Mfg: Help[employer]; Lot: [id number]; VIS given (Karley: 04/17/16; 04/17/16). DoD Immunization Administration By Injection, One Vaccine Immunization Administration By Injection, One Vaccine 213442016 [facility] Immunization Administration By Injection, Each Additional Vaccine Immunization Administration By Injection, Each Additional Vaccine 040392016 AKILA SWAIN [facility] Vaccines Viral Measles, Mumps and Rubella, Live Vaccines Viral Measles, Mumps and Rubella, Live 05757 2016 AKILA SWAIN LINH MMR; Series #: 2; .5 mL; SC; Left Arm; Mfg: Merck; Lot: [id number]; VIS given (Karley: 01/17/12). [facility] Skin Test Anergy Tuberculin Intradermal Skin Test Anergy Tuberculin Intradermal 64718 2016 TL BRITT IPPD; Series #: 1; .1 mL; ID; Left Arm; Mfg: Sanofi Pasteur; Lot: [id number]; VIS given. [facility] Patient education, not otherwise cla ified, non-physician provider, group, per se ion [address] [facility] Visual Function Screening Visual Function Screening [address] [facility] Physician Supervised Injection Intramuscular Antibiotic Physician Supervised Injection Intramuscular Antibiotic 69067 2016 AKILA SWAIN [facility] Injection, penicillin g benzathine, 100,000 units [facility] Vaccines Adenovirus Type 7 Live, For Oral Use Vaccines Adenovirus Type 7 Live, For Oral Use 98955 2016 AKILA SWAIN [facility] Immunization Admin Intranasal / Oral Each Additional Vaccine Immunization Admin Intranasal / Oral Each Additional Vaccine 16874 2016 [facility] Vaccines Adenovirus Type 4 Live, For Oral Use Vaccines Adenovirus Type 4 Live, For Oral Use 30632 2016 [facility] Influenza Split Virus Vaccine IM W/ Preserv Trivalent 0.50mL Dosage Influenza Split Virus Vaccine IM W/ Preserv Trivalent 0.50mL Dosage 34226 2016 AKILA SWAIN [facility] Immunization Administration By Injection, One Vaccine Immunization Administration By Injection, One Vaccine 599202016 [facility] Immunization Administration By Injection, Each Additional Vaccine Immunization Administration By Injection, Each Additional Vaccine 79595 2016 WILIAMAKILA LINH DoD Vaccines Viral Measles, Mumps and Rubella, Live Vaccines Viral Measles, Mumps and Rubella, Live 21551 2016 AYSHAFRANKAKILA Jim LINH MMR; Series #: 1; .5 mL; SC; Right Arm; Mfg: Merck; Lot: [id number]; VIS given (Karley: 01/17/12). [facility] Vaccines Viral Varicella (Active) Vaccines Viral Varicella (Active) 44289 2016 AYSHAEstephanieAKILA HORTON LINH Varicella; Series #: 1; .5 mL; SC; Right Arm; Mfg: Merck; Lot: [id number]; VIS given (Karley: 12/10/07). [facility] Hepatitis A And Hepatitis B (Intramuscular Use) Adult Dosage Hepatitis A And Hepatitis B (Intramuscular Use) Adult Dosage 99223 2016 WILIAMAKILA LINH Hep A-Hep B; Series #: 1; 1.0 mL; IM; Left Arm; Mfg: HelpAround; Lot: [id number]; VIS given (Karley: 04/17/16; 04/17/16). [facility] Meningococcal Polysaccharide Diphtheria Toxoid Conjugate Vaccine 2016 IWLIAMAKILA LINH Meningococcal MCV4P; Series #: 1; .5 mL; IM; Left Arm; Mfg: Sanofi Pasteur; Lot: [id number]; VIS given (Karley: 12/28/2015). [facility] Tdap Vaccine Tdap Vaccine 55773 2016 WILIAMAKILA LINH Tdap; Series #: 1; .5 mL; IM; Right Arm; Mfg: Other; Lot: [id number]; VIS given (Karley: 11/22/14). [facility] Threshold Audiogram (Pure Tone) Threshold Audiogram (Pure Tone) 01141 2016 ELIJAH CHRISTIANSON DoD Audiometry Group Testing Audiometry Group Testing [address] [facility] Threshold Audiogram (Pure Tone) Automated Threshold Audiogram (Pure Tone) Automated 0208T THADDEUS MILES [facility] Vaccine SARS-CoV-2 mRNA-LNP Humberto Protein Preservative Free 100mcg/0.5mL IM Second Dose Vaccine SARS-CoV-2 mRNA-LNP Humberto Protein Preservative Free 100mcg/0.5mL IM Second Dose 0012A VIANCA LEIGH [facility] Vaccine SARS-CoV-2 mRNA-LNP Humberto Protein Preservative Free 100mcg/0.5mL IM Vaccine SARS-CoV-2 mRNA-LNP Humberto Protein Preservative Free 100mcg/0.5mL IM 14167 VIANAC LEIGH COVID-19 Moderna; Series #: 2; 0.5 mL; IM; Left Arm; Mfg: Moderna GL 2ours.; Lot: [id number]. [facility] Vaccine SARS-CoV-2 mRNA-LNP Humberto Protein Preservative Free 50mcg/0.25mL IM Vaccine SARS-CoV-2 mRNA-LNP Humberto Protein Preservative Free 50mcg/0.25mL [place] [id number] [address] COVID-19 Moderna; Series #: 3; 0.25 mL; IM; Left Arm; Mfg: Moderna GL 2ours.; Lot: [id number]; VIS given (Karley: 05/25/2021). [facility] Vacc SARS-CoV-2 mRNA-LNP Humberto Protein Preservative Free 50mcg/0.25mL IM Booster Dose Vacc SARS-CoV-2 mRNA-LNP Humberto Protein Preservative Free 50mcg/0.25mL IM Booster Dose [id number] MIREYA WALL [facility] Chiropractic Manip Treatmt (CMT) Spinal [place] Chiropractic Manip Treatmt (CMT) Spinal [place] [address] [address], [place] [facility] Ophthalmological New Patient Start Comprehensive Care Ophthalmological New Patient Start Comprehensive Care [address] [address] Determination Of Refractive State Determination Of Refractive State [id number] [facility] No data available for this section Ambulato ry Pharmacy Social History Combined list of available smoking, tobacco, and other social history from [facility] Defense and [facility] facilities. Social History Type Response Date Comment Sour e Male 09/13/2022 Ambulatory Pha rmacy This section is an empty soc ial history section. [facility] Sexual Orientation Ambula tory Pharmacy Gender identity Ambulator y Pharmacy Assessment and Plan Combined list of future care activities from Department of Defense and Veterans Affairs facilities (e.g., assessment and plan notes, appointments, orders, and referrals). Additional future care activities may be listed in the Plan of Care section. 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 Patient denies significant medical or mental health concerns at this time that have?not been previously mentioned. DD Forms 2807-1 and 2697 were completed, signed, and to be uploaded into [employer] by compound mixer/ELEUTERIO. With information provided, there are no other apparent medical or mental health concerns that have not been identified, or previously stated, and member is cleared to separate from as soon as possible.? ? Final physical (DD Form 2808) form completed and to be uploaded into [employer] by compound mixer/MA. No significant medical or mental health problems identified, or stated, that would limit skilled nursing/separation processing.? ? ? DEBO Blankenship, [facility] Nurse Practitioner [facility] Medicine [place], [place] ? ? ? Extracted from:Title: Cerumen removal (Ad 0nly) [facility] Author: JR WIGGINS AuD Date: 05/05/23 [...] ? ? The cerumen was removed by?undersigned office services representative. The supervising office services representative of record for cerumen management was _. ? Plan: ? ?Patient to RTC in 6 months for routine cerumen management ? ? PO2 to return to Dept for follow-up #1 audio re-check for termination purposes ? Cheri_Noé James Doctor of Audiology Audiology Dept. [facility] Protection JES RANDLE [facility] [phone] ? Extracted from:Title: Office Clinic Note Author: AUBREE OSMAN Date: 05/05/23 Encounter for examination and observation for other specified reasons Hearing WNL. A copy of hearing test was given to patient, scanned into [employer], and given to medical records. Patient displayed an early warning shift in his left ear based on his 2017 reference audiogram. Patient acknowledged his results. Extracted from:Title: AUDIOLOGY NOTE [id number] Author: DEE RICARDO Date: 05/01/23 Encounter for examination and observation for other specified reasons Hearing WNL.?Patient has a Positive Shift in Left Ear and an Early Warning Shift in Right Ear.??Deburr Technician examined patient's ears for cerumen.? Patient was referred to see Doctor Wiggins for?an ear cleaning?and?a follow up examination. Patient acknowledged change in hearing.?? A copy of the hearing test was given to member and a copy of the hearing test was scanned into [employer]. 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 [...] responsible for his/her individual medical readiness. The hvac service technician stated understanding. FIT FOR DUTY. -The patient [...] Regan Kim, , DO GARZON, AG, FRANNY [place], [place] ? ? 11/02/2024 Ambulatory Pharmacy Functional Status Combined list of recent functional and cognitive assessments recorded at [facility] and [facility] (VA).VA Functional [place] Measurement (FIM) Scale: 1 = Total Assistance (Subject = 0% +), 2 = Maximal Assistance (Subject = 25% +), 3 = Moderate Assistance (Subject = 50% +), 4 = Minimal Assistance (Subject = 75% +), 5 = Supervision, 6 = Modified [place] (Device), 7 = Complete [place] (Timely, Safely). Assessment Date/Time Source Assessment Type Assessment Skill Assessment Score Assessment Details No data available for this section
[2024-11-02 15:52] VITALS: BP 117/60; PULSE 87; RESP 16; TEMP 36.8; O2SAT 96; BMI 36.9
== END 2024-11-02 16:16 | disposition home or self-care (01) ==
PROVIDERS: PCP Family Medicine; Visit Provider Family Medicine
DX: R73.03 Prediabetes (principal)

== ENCOUNTER 2024-11-19 14:56 | Outpatient (AMB) | payer BC, SELFPAY ==
--- NOTE | 2024-11-19 14:57 | HO.NEPHOV_ITS ---
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 The home sleep study result was significant for moderate degree of sleep apnea. The AHI was 16/hr and oxygen little was 76%. Pt started APAP [id number]. The CPAP compliance and therapy response (08/06/24-11/03/24) reviewed. The usage days 93% and the avg usage hours 7 hrs and 12 min. Median press was 8.2 and the AHI was 1.6/hr. Pt reports he sleeps well with CPAP for 6-8 hrs, snoring has resolved. He feels refreshed in the morning and much less tired during daytime. He c/o headaches mild however they resolve as the day progresses. He denies RLS. 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 He feels anxious at times and is on Citalopram, and will be seeing a therapist soon. [facility] Medical History No pertinent past medical history Surgical History No pertinent past surgical history Family History Father Diabetes HTN (hypertension) Other Mental health disorder Substance abuse Social History Housing: House Alcohol intake: current Alcohol intake frequency: holidays/special occasions only Patient Tobacco Use Status: Former Tobacco user e-Cigarette/Vaping Use: Currently Using service: Yes Current occupational status: employed Current occupation: [employer] Cognitive needs: No Hearing needs: No Vision needs: No Review of Systems ENT Reports Normal hearing present Neuro Reports Normal hearing present Physical Exam Vital Signs: Last Vital Signs Pulse 103 H 11/19/24 14:58 BP 110/70 11/19/24 14:58 Pulse Ox 96 11/19/24 14:58 Oxygen Delivery Method Room Air 11/19/24 14:58 BMI result Body Mass Index 37.2 Const General: cooperative Nutritional Appearance: obese Orientation/consciousness: patient oriented x3 HEENT Throat: Yes other (mallapati grade 4) Neck Neck: Yes full ROM and Yes supple Resp Effort & Inspection: normal respiratory effort and able to speak in complete sentences Neuro General: patient oriented x3, gait normal and moves all extremities Cranial nerves: Yes Normal facial strength present, Yes Midline tongue present, Yes Symmetric palate elevation present, Yes Normal hearing present and Yes Ability to bilaterally rotate head present Cognition (Neuro): normal cognition Gait exam (Neuro): Normal gait present Motor exam (neuro): 5/5 motor strength present throughout, Pronator motor function not present and no tremor noted Psych Appearance: grossly normal Mental Status: mental status grossly normal Affect: normal affect Attitude: cooperative Results Reviewed Results Reviewed: Compliance Report 07/2024 to 10/2024 >4 hours 82 days 91% Avg Usage 7 hours and 12min Median press 8.2 and AHI is 1.6 FINDINGS: MRI No fracture or destructive process or alignment abnormality. Vertebral body heights and disc space heights are preserved. TECHNIQUE: 2 views lumbar spine FINDINGS: No fracture or destructive process or alignment abnormality. Vertebral body heights and disc space heights are preserved. Nephrology Results: Sodium 140 mmol/L (135-145) 11/01/24 Potassium 3.7 mmol/L (3.3-5.1) 11/01/24 Chloride 108 mmol/L (96-108) 11/01/24 Carbon Dioxide 26 mmol/L (22-29) 11/01/24 BUN 13 mg/dL (9-16) 11/01/24 Creatinine 0.73 mg/dL (0.5-1.4) 11/01/24 Calcium 8.7 mg/dL (8.4-10.2) 11/01/24 Urine Protein Trace mg/dL (Neg-Trace) 11/01/24 Urine Creatinine 168.08 mg/dL 12/30/23 Assessment & Plan Assessment & Plan (1) Headache: Code(s): R51.9 - Headache, unspecified Category: Medical Qualifiers: Headache type: tension-type Headache chronicity pattern: acute headache Intractability: intractable Qualified Code(s): G44.201 - Tension-type headache, unspecified, intractable (2) Cervicalgia: Code(s): M54.2 - Cervicalgia Category: Medical (3) Depression with anxiety: Code(s): F41.8 - Other specified anxiety disorders Category: Medical (4) Sleep apnea: Code(s): G47.30 - Sleep apnea, unspecified Category: Medical Qualifiers: Sleep apnea type: unspecified type Qualified Code(s): G47.30 - Sleep apnea, unspecified Plan CPAP compliance is emphasized Monitor headaches F/U in one year Patient Instructions: BMI is elevated, he goes to the gym 3 times a week with a wellness trainer, for back issues, and he declined physical therapy. Sleep Hygiene, sleep in a dark cool environment with no devices in bed, and limit fluids 2 hours prior to bed. Coding Level of Care Code Est Pt Level 4 (83575) Diagnoses Acute intractable tension-type headache G44.201 Headache type: tension-type Headache chronicity pattern: acute headache Intractability: intractable Cervicalgia M54.2 Depression with anxiety F41.8 Sleep apnea, unspecified type G47.30 Sleep apnea type: unspecified type Time Spent (min) 30
[2024-11-19 14:58] VITALS: BP 110/70; PULSE 103; O2SAT 96; BMI 37.2
--- OUTSIDE RECORDS SUMMARY | 2024-11-19 15:07 | XMS_ITS | Continuity of Care Document ---
Author Name [facility] Organization [facility] Care Team Providers Care Associate Partner Name Role Phone [facility] Unavailable Unavailable Medications Combined list of outpatient [...] TORRENT PHARMAC, 500 ea. BOTTLE Cancele d [id number] : 2023 0 Pharmac y Data Transac tion Service Facilit y CITALOPRAM HBR (CITALOPRAM HYDROBROMID E), 20MG, TABLET, ORAL, TORRENT PHARMAC, 500 ea. BOTTLE Cancele d [id number] : 2023 0 Pharmac y Data Transac tion Service Facilit y CITALOPRAM HBR (CITALOPRAM HYDROBROMID E), 20MG, TABLET, ORAL, TORRENT PHARMAC, 500 ea. BOTTLE Active [id number] 2023 30 Pharmac y Data Transac tion Service Facilit y CITALOPRAM HBR (CITALOPRAM HYDROBROMID E), 20MG, TABLET, ORAL, TORRENT PHARMAC, 500 ea. BOTTLE Active [id number] 2022 30 Pharmac y Data Transac tion Service Facilit y gabapentin 300 mg oral capsule 1 cap(s), Oral, TID, 0 total refill(s ), Maintena nce Oral (given by mouth) Ordered [facility] HYDROXYZINE HCL (hydroxyzin e HCl), 50 MG, TABLET, ORAL, AUROBINDO PHARM, 500 ea. BOTTLE Cancele d [id number] : 2023 0 Pharmac y Data Transac tion Service Facilit y MELOXICAM (MELOXICAM) , 15 MG, TABLET, ORAL, CIPLA [employer] 100 ea. BOTTLE Cancele d [id number] : 2023 0 Pharmac y Data Transac tion Service Facilit y meloxicam 15 mg oral tablet 1 tab(s), Oral, Daily, 0 total refill(s ), Maintena nce Oral (given by mouth) Ordered [facility] OMEPRAZOLE (omeprazole ), 20 MG, CAPSULE DR, ORAL, RISING PHARM, 1000 ea. BOTTLE Cancele d [id number] : 2023 0 Pharmac y Data Transac tion Service Facilit y OMEPRAZOLE (omeprazole ), 20 MG, CAPSULE DR, ORAL, RISING PHARM, 1000 ea. BOTTLE Cancele d [id number] : 2023 0 Pharmac y Data Transac tion Service Facilit y OMEPRAZOLE (omeprazole ), 20 MG, CAPSULE DR, ORAL, RISING PHARM, 1000 ea. BOTTLE Active [id number] 2022 30 Pharmac y Data Transac tion Service Facilit y OMEPRAZOLE (omeprazole ), 20 MG, CAPSULE DR, ORAL, RISING PHARM, 1000 ea. BOTTLE Active [id number] 2023 30 Pharmac y Data Transac tion Service Facilit y Allergies, Adverse Reactions, Alerts Combined list of allergies from Department of Defense and Veterans Affairs facilities. It does not include entries that were removed or entered in error. Substance Category Reaction Severity Reaction type Status Date Reported Comments Source No Known Allergies Drug allergy (disorder) active 01/21/2017 [facility] Immunizations Combined list of available immunizations from the Department of Defense and Veterans Affairs facilities. Immunization Series Date Given Administered By Site Reaction Lot Number CVX Code Drug Surveillance Specialist Status Comments Source COVID Vaccine Moderna 2021 zzLef t Arm [id number] complet ed COVID Vaccine Moderna 10/03/21 Given Ambulat ory Pharmac y SARS-COV-2 (COVID-19) vaccine, mRNA, spike protein, LNP, preservative free, 100 mcg or 50 mcg dose 3 2021 MIREYA WALL [id number] 207 Moderna DoctorC, Inc. (MOD) complet ed SARS-COV- 2 (COVID-19 ) vaccine, mRNA, spike protein, LNP, preservat ekta free, 100 mcg or 50 mcg dose DoD influenza, injectable, quadrivalent- pf 2020 [id number] Seqirus complet ed influenza , injectabl e, quadrival ent-pf 07/31/21 Given Ambulat ory Pharmac y Influenza, injectable, quadrivalent, preservative free 0 2020 [id number] 150 Seqirus (SEQ) comple t ed Influenza , injectabl e, quadrival ent, preservat ekta free DoD COVID Vaccine Moderna 2020 zzLef t Arm [id number] 207 complet ed COVID Vaccine Moderna 11/22/20 Given Ambulat ory Pharmac y SARS-COV-2 (COVID-19) vaccine, mRNA, spike protein, LNP, preservative free, 100 mcg or 50 mcg dose 2 2020 MARLENE HARVEY I [id number] 207 Moderna Doctor[employer] Inc. (MOD) complet ed SARS-COV- 2 (COVID-19 ) vaccine, mRNA, spike protein, LNP, preservat ekta free, 100 mcg or 50 mcg dose DoD COVID Vaccine Moderna 2020 [id number] complet ed COVID Vaccine Moderna 10/26/20 Given Ambulat ory Pharmac y SARS-COV-2 (COVID-19) vaccine, mRNA, spike protein, LNP, preservative free, 100 mcg or 50 mcg dose 1 2020 [id number] 207 Moderna Doctor[employer] Inc. (MOD) complet ed SARS-COV- 2 (COVID-19 [...] free DoD influenza, injectable, quadrivalent- pf 2018 [id number] 150 Seqirus complet ed influenza , injectabl e, quadrival ent-pf 08/16/19 Given Ambulat ory Pharmac y Influenza, injectable, quadrivalent, preservative free 0 2018 [id number] 150 Seqirus (SEQ) complet ed Influenza [...] varicella virus vaccine 2016 zzLef t Arm [id number] 21 Merck & Company Inc complet ed varicella virus vaccine 02/06/17 Given Ambulat ory Pharmac y measles/mumps /rubella virus vaccine 2016 zzLef t Arm [id number] 03 Merck & Company Inc complet ed measles/m umps/rube lla virus vaccine 02/06/17 Given Ambulat ory Pharmac y poliovirus vaccine, inactivated 2016 zzRig ht Arm [id number] 10 sanofi pasteur complet ed polioviru s vaccine, inactivat ed 02/06/17 Given Ambulat ory Pharmac y measles, mumps and rubella virus vaccine 2 2016 AKILA SWAIN [id number] 03 Merck (MSD) complet ed measles, mumps and rubella virus vaccine DoD poliovirus vaccine, inactivated 1 2016 AKILA SWAIN [id number] 10 Sanofi Pasteur (PMC) complet ed polioviru s vaccine, inactivat ed DoD varicella virus vaccine 2 2016 AKILA SWAIN [id number] 21 Merck (MSD) complet ed varicella virus vaccine DoD hepatitis A and hepatitis B vaccine 2 2016 AKILA SWAIN [id number] [facility] ([facility]) complet ed hepatitis A and hepatitis B vaccine DoD tuberculin purified protein derivative 2016 zzLef t Arm [id number] 96 sanofi pasteur complet ed Patient Tolerance : Negative Ambulat ory Pharmac y tuberculin skin test; purified protein derivative solution, intradermal 0 2016 TL BRITT [id number] 96 Sanofi Pasteur (PMC) complet ed tuberculi n skin test; purified protein derivativ e solution, intraderm al DoD varicella virus vaccine 2016 zzRig ht Arm [id number] 21 Merck & Company Inc complet ed varicella virus vaccine 01/06/17 Given Ambulat ory Pharmac y hepatitis A-hepatitis B vaccine 2016 zzLef t Arm [id number] 104 GlaxoSmithKli ne complet ed hepatitis A-hepatit is B vaccine 01/06/17 Given Ambulat ory Pharmac y measles/mumps /rubella virus vaccine 2016 [facility] [id number] 03 Merck & Company Inc complet ed measles/m umps/rube lla virus vaccine 01/06/17 Given Ambulat ory Pharmac y meningococcal A,C,Y,W-135 (MCV4P) 2016 zDavi t Arm [id number] 114 sanofi pasteur complet ed meningoco ccal A,C,Y,W-1 35 (MCV4P) 01/06/17 Given Ambulat ory Pharmac y tetanus, diphtheria, acellular pertu is 2016 [facility] [id number] 115 Unknown complet ed tetanus, diphtheri a, acellular pertussis 01/06/17 Given Ambulat ory Pharmac y adenovirus vaccine, live 2016 [id number] 143 Unknown complet ed adenoviru s vaccine, live 01/06/17 Given Ambulat ory Pharmac y influenza, seasonal, injectable-pf 2016 zzL t Arm [id number] 140 Seqirus complet ed influenza , seasonal, injectabl e-pf 01/06/17 Given Ambulat ory Pharmac y measles, mumps and rubella virus vaccine 1 2016 AKILA SWAIN [id number] 03 Merck (MSD) complet ed measles, mumps and rubella virus vaccine DoD varicella virus vaccine 1 2016 AKILA SWAIN [id number] 21 Merck (MSD) complet ed varicella virus vaccine DoD hepatitis A and hepatitis B vaccine 1 2016 AKILA SWAIN [id number] 104 SmithKline (SKB) complet ed hepatitis A and hepatitis B vaccine DoD meningococcal polysaccharid e (groups A, C, Y and W-135) diphtheria toxoid conjugate vaccine (MCV4P) 1 2016 AKILA SWAIN [id number] 114 Sanofi Pasteur (PMC) complet ed meningoco [...] injectable, preservative free 1 2016 AKILA SWAIN [id number] 140 Seqirus (SEQ) complet ed Influenza , seasonal, injectabl e, preservat ekta free DoD Adenovirus, type 4 and type 7, live, oral 1 2016 AKILA SWAIN [id number] 4 143 Other (OTH) complet ed Adenoviru s, type 4 and type 7, live, oral DoD Results Combined list of recent chemistry, hematology and other laboratory results from Department of Defense and Veterans Affairs, ranging from 15 months to all on record, depending upon the facility. Order Name Results Value Reference Range Date Interpretation Specimen Comments Source Infectious Disease HIV-1/2 AG/AB 4G CDD LC NEGATIVE 09/03 Result Comment: Performed At: 1 [facility] [address] [place] [address] [address] [place] [address] RITA ZULUAGAN PHD Ph:[phone] [facility] Infectious Disease Source of Test.LC Clinically Ind (09/03/23 12:30 PM) 09/03 N [facility] Vital Signs Combined list of inpatient and outpatient Vital Signs from Department of Defense and Veterans Affairs, ranging from 12 months to all on record, depending upon the facility. Vital Sign Value Date Comments Source Systolic Blood Pressure 126 mm[Hg] 09/17/2023 18:19:00 [facility] [place] [facility] Diastolic Blood Pressure 79 mm[Hg] 09/17/2023 18:19:00 [facility] Mean Arterial Pressure, Calc 95 mm[Hg] 09/17/2023 18:19:00 [facility] [place] Peripheral Pulse Rate 84 bpm 09/17/2023 18:19:00 [facility] [place] Respiratory Rate 14 br/min 09/17/2023 18:19:00 [facility] [place] [facility] Temperature Oral 37.1 Suzan 09/17/2023 [facility]19[facility] Right [facility] 09/17/2023 18:19:00 [facility] [place] Blood Pressure Manual Automatic 09/17/2023 18:19:00 [facility] [place] Respiratory Rate 15 br/min 03/06/2023 15:21:00 [facility] [place] Systolic Blood Pressure 120 mm[Hg] 03/06/2023 15:21:00 [facility] [place] Diastolic Blood Pressure 81 mm[Hg] 03/06/2023 15:21:00 [facility] [place] Mean Arterial Pressure, Calc 94 mm[Hg] 03/06/2023 15:21:00 [facility] [place] Peripheral Pulse Rate 74 bpm 03/06/2023 15:21:00 [facility] [place] Encounters Combined list of: 1) Encounters from Department of Veterans Affairs facilities going backup to the last 18 months, not all VA inpatient encounters are included; 2) Encounters from the Department of [employer] facilities going backup to 280 months. Location Location Details Encounter Type Encounter Number Reason For Visit Attending Provider ADM Date DC Date Status Disposition Source [facility](Au diology [facility] 1523) OUTPATIENT [id number] ELIJAH CHRISTIANSON 01/03 Released w/o Limitations [facility]( Audiolo gy [facility] 1523) [facility](Op tometry [facility] 1523) OUTPATIENT [id number] YUNG MICHAEL 01/03 Released w/o Limitations [facility]( Optomet ry [facility] 1523) [facility](Im munizatio n 1523) OUTPATIENT [id number] Notes Entered by: OLIVE DE DIOS ON L 06 Jan 2017 1001 ------- ------- ------- ------- -- P4 Immuniz ations BERNARD KELLY 01/06 Released w/o Limitations [facility]( Immuniz ation 1523) [facility] Male) OUTPATIENT [id number] Notes Entered by: RAFIA DOMINGUEZ 06 Jan 2017 1350 ------- ------- ------- ------- -- P-4 Male [facility] ALPESH LAUGHLIN 01/06 Released w/o Limitations [facility]( [facility] Male) [facility](Co urage (Quynh) 1007) OUTPATIENT [id number] RASH ON FACE MATEUS SHAVER 01/15 Released w/o Limitations [facility]( [place] (White) 1007) [facility](Pr ev Med Immunizat ions/237) OUTPATIENT [id number] Notes Entered by: Denzel BRITT 17 Jan 2017 1157 ------- ------- ------- ------- -- TST PPD TB Testing ANTOINETTE LADD Beverly 01/17 Released w/o Limitations [facility] [place]( Prev Med Immuniz ations/ 237) [facility] [place](Sp ecial Physicals [facility] 1007) OUTPATIENT [id number] KELVIN Peter 01/21 Released w/o Limitations [facility] [place]( Special Physica ls [facility] 1007) [facility] [place](Im munizatio n 1523) OUTPATIENT [id number] Notes Entered by: OLIVE DE DIOS 06 Feb 2017 1139 ------- ------- ------- ------- -- 5-2 Immuniz ations ELROY GARCIA 02/06 Released w/o Limitations [facility]( Immuniz ation 1523) [facility] [place](Sp ecial Physicals [facility] 1007) OUTPATIENT [id number] DANIELA SHEA 02/12 Released w/o Limitations [facility]( Special Physica ls [facility] 1007) [facility] [facility] Undersea Medicine) OUTPATIENT [id number] Notes Entered by: JR WEBB 03 Jun 2017 1513 ------- ------- ------- ------- -- fever symptom s ANTOINETTE RUTH 06/03 Sick at Home/Quarter s [facility] [place]([facility] Underse a Medicin e) [facility] [place]([facility] Preventiv e Med) OUTPATIENT [id number] Notes Entered by: KUMAR APONTE 26 Sep 2017 1213 ------- ------- ------- ------- -- Flu Vx MARCOS APONTE 09/26 Released w/o Limitations [facility] [place]([facility] Prevent ekta Med) [facility] [place]([facility]) OUTPATIENT [id number] Notes Entered by: THADDEUS ARROYO 18 Mar 2018 1200 ------- ------- ------- ------- -- twinrix #3 THADDEUS ARROYO 03/18 Released w/o Limitations [facility] [place]([facility]) [facility] [place]( Immunizat ion Cl) OUTPATIENT [id number] Notes Entered by: LULY GARCIA PHER I 15 Jul 2018 1046 ------- ------- ------- ------- -- Flu Vaccine MARCOS GARCIA I 07/15 Released w/o Limitations [facility] [place]( SS Immuniz ation Cl) [facility] [place]( Fam Med PCMH 1) OUTPATIENT [id number] Notes Entered by: LULY GARCIA PHER I 09 Oct 2018 0848 ------- ------- ------- ------- -- Part 1 OSS MARCOS GARCIA I 10/09 Released w/o Limitations [facility] [place]( Fam Med PCMH 1) [facility] [place]( Fam Med PCMH 1) OUTPATIENT [id number] Part 2 OSS JOHNSON SONG 10/14 Released w/o Limitations [facility] [place]( Fam Med PCMH 1) [facility] [place]([facility] ion) OUTPATIENT [id number] ANNUAL ALISSONSELINA BROWNFRANKAINE 11/12 Released w/o Limitations [facility] [place]( [place] [facility]) [facility] [place](Gr Immunizat ion Cl) OUTPATIENT [id number] Notes Entered by: BUCKY HARVEY 27 Oct 2020 0922 ------- ------- ------- ------- -- COVID DOSE #1 ROCHELLE SONG DANIAL 10/27 Released w/o Limitations [facility] [place]( Gr Immuniz ation Cl) [facility] [place]([facility] ion) OUTPATIENT [id number] ANNUAL [employer] [place] THADDEUS KAM 11/06 Released w/o Limitations [facility] [place]( [place] [facility]) [facility] [place](Gr Immunizat ion Cl) OUTPATIENT [id number] Notes Entered by: BUCKY HARVEY 22 Nov 2020 1330 ------- ------- ------- ------- -- COVID DOSE #2 VIANCA LEIGH 11/22 Released w/o Limitations [facility] [place]( Gr Immuniz ation Cl) [facility] [place]([facility] ion) OUTPATIENT [id number] ANNUAL/ [place] DEE RICARDO 08/10 Released w/o Limitations [facility] [place]( [place] [facility]) [facility] [place](Gr Immunizat ion Cl) OUTPATIENT [id number] Notes Entered by: MIREYA WALL 03 Oct 2021 1512 ------- ------- ------- ------- -- ModernMIREYA Zabala 10/03 Released w/o Limitations [facility] [place]( Gr Immuniz ation Cl) [facility] [place](Gr Chiroprac tic Cl) OUTPATIENT [id number] New Mid and upper back >2wks LEVEL, MARCOS Zepeda 10/24 Released w/o Limitations [facility] [place]( Gr Chiropr actic Cl) [facility] [place]( [facility]) OUTPATIENT [id number] ANH Jordan KEVIN 11/08 Released w/o Limitations [facility] [place]( [place] [facility]) [facility] [place]( Chiroprac tic Cl) OUTPATIENT [id number] f/u MARCOS MONROE W 11/12 Released w/o Limitations [facility] [place]( Chiropr actic Cl) Procedures Combined list of: [...] VACCINE (SINGLE OR COMBINATION VACCINE/TOXOID) 2016 DoD CHIROPRACTIC MANIPULATIVE TREATMENT (CMT); SPINAL, 3-4 REGIONS 2021 DoD DETERMINATION OF REFRACTIVE STATE 2021 DoD CHIROPRACTIC MANIPULATIVE TREATMENT (CMT); SPINAL, 3-4 REGIONS 2021 DoD IMMUNIZATION ADM,IM INJECTION OF SEVERE AC RESPIRATORY SYNDROME CORONAVIR 2 (SARS-COV-2) (CORONAVIR DIS [COVID-19]) VACCINE,MRNA-LNP,S PIKE PROTEIN,PRESERVATI VE FREE,50 MCG/0.25 ML DOSAG,BOOSTER DOSE 2021 DoD PURE TONE AUDIOMETRY (THRESHOLD), AUTOMATED; AIR ONLY 2020 DoD SEVERE ACUTE RESPIRATORY SYNDROME CORONAVIRUS 2 (SARSCOV-2) (CORONAVIRUS DISEASE [COVID-19]) VACCINE, MRNALNP, SPIKE PROTEIN, PRESERVATIVE FREE, 100 MCG/0.5ML DOSAGE, FOR INTRAMUSCULAR USE 2020 DoD PURE TONE AUDIOMETRY (THRESHOLD), AUTOMATED; AIR ONLY 2020 DoD IMMUNIZATION ADM,INTRAMUSCULAR INJECTION OF SEVERE AC RESPIRATORY SYNDROME CORONAVIR 2 (SARSCOV-2) (CORONAVIR DIS [COVID-19]) VACCINE,MRNALNP,SP KAI PROT,PRESERVATIVE FREE,100 MCG/0.5ML DOSAG;1ST DOSE 2020 [facility] EDUCATION &TRAINING, PATIENT SELF-MGT QUALIFIED, NONPHYSICIAN HEALTH SATELLITE DISH INSTALLER USING STANDARDIZED CURRICULUM, [id number] W THE PATIENT (COULD INCL CAREGIVER/FAMILY) EA 30 MIN; 2-4 PATIENTS 2018 [facility] ADMINISTRATION OF PATIENT-FOCUSED HEALTH RISK ASSESSMENT INSTRUMENT (EG, HEALTH HAZARD APPRAISAL) WITH SCORING AND DOCUMENTATION, PER STANDARDIZED INSTRUMENT 2018 [facility] IMMUNIZATION ADMINISTRATION (INCLUDES PERCUTANEOUS, INTRADERMAL, SUBCUTANEOUS, OR INTRAMUSCULAR INJECTIONS); 1 VACCINE (SINGLE OR COMBINATION VACCINE/TOXOID) 2017 DoD IMMUNIZATION ADMINISTRATION (INCLUDES PERCUTANEOUS, INTRADERMAL, SUBCUTANEOUS, OR INTRAMUSCULAR INJECTIONS); EACH ADDITIONAL VACCINE (SINGLE OR COMBINATION VACCINE/TOXOID) 2016 [facility] SKIN TEST; TUBERCULOSIS, INTRADERMAL 2016 [facility] PATIENT EDUCATION, NOT OTHERWISE CLASSIFIED, NON-PHYSICIAN PROVIDER, GROUP, PER SESSION 2016 DoD IMMUNIZATION ADMINISTRATION (INCLUDES PERCUTANEOUS, INTRADERMAL, SUBCUTANEOUS, OR INTRAMUSCULAR INJECTIONS); EACH ADDITIONAL VACCINE (SINGLE OR COMBINATION VACCINE/TOXOID) 2016 [facility] VIS FUNCT SCREEN,AUTOMAT/JAKE I-AUTOMAT BILAT QUANT DETERM VISUAL ACUITY,OCULAR ALIGN,COLOR VISION,PSEUDOISOCH ROMAT PLATES,& FIELD VIS (MAY INC ALL/SOME SCRN DETERM FOR CONTRAST SENSITIV,VIS UND GLARE) 2016 [facility] AUDIOMETRIC TESTING OF GROUPS 2016 [facility] Patient Counseling Medical Management Two To Four Patients Patient Counseling Medical Management Two To Four Patients [id number] 2018 FRANK PETIT [facility] Testing Audiometry Group Testing 01524 2018 FRANK PETIT Threshold Audiogram (Pure Tone) Automated Threshold Audiogram (Pure Tone) Automated 0208T 2018 FRANK PETIT [facility] Preventive Medicine Administration Of Health Risk Questionnaire Patient-Focused Preventive Medicine Administration Of Health Risk Questionnaire Patient-Focused [id number] 2018 VALDEZ GARCIA I [facility] Influenza Split Virus Vaccine IM Preserv Free 0.5mL Dosage Quadrivalent Influenza Split Virus Vaccine IM Preserv Free 0.5mL Dosage Quadrivalent 13005 2017 VALDEZ GARCIA I Influenza Seasonal, injectable quadrivalent - preservative free; Series #: 1; .5 mL; IM; Left Arm; Mfg: Gonway; Lot: [id number]; VIS given (Karley: 05/05/2015). DoD Immunization Administration By Injection, One Vaccine Immunization Administration By Injection, One Vaccine 39233 2017 VALDEZ GARCIA I DoD Hepatitis A And Hepatitis B (Intramuscular Use) Adult Dosage Hepatitis A And Hepatitis B (Intramuscular Use) Adult Dosage 12524 2017 THADDEUS ARROYO Hep A-Hep B; Series #: 3; 1.0 mL; IM; Left Arm; Mfg: Gonway; Lot: [id number]; VIS given (Karley: 04/17/16; 04/17/16). DoD Immunization Administration By Injection, One Vaccine Immunization Administration By Injection, One Vaccine [id number] THADDEUS ARROYO DoD Immunization Administration By Injection, One Vaccine Immunization Administration By Injection, One Vaccine 127482016 VALDEZ APONTE DoD Influenza Split Virus Vaccine IM Preserv Free 0.5mL Dosage Quadrivalent Influenza Split Virus Vaccine IM Preserv Free 0.5mL Dosage Quadrivalent [id number] VALDEZ APONTE Influenza Seasonal, injectable quadrivalent - preservative free; Series #: 1; .5 mL; IM; Left Arm; Mfg: Gonway; Lot: [id number]. [facility] Vaccines Viral Polio, Inactivated Vaccines Viral Polio, Inactivated 24474 2016 AKILA SWAIN IPV; Series #: 1; .5 mL; SC; Right Arm; Mfg: Sanofi Pasteur; Lot: [id number]; VIS given (Karley: 04/17/16; 08/03/15 - Multiple). DoD Vaccines Viral Varicella (Active) Vaccines Viral Varicella (Active) [id number] AKILA SWAIN Varicella; Series #: 2; .5 mL; SC; Left Arm; Mfg: Merck; Lot: [id number]; VIS given (Karley: 12/10/07). DoD Hepatitis A And Hepatitis B (Intramuscular Use) Adult Dosage Hepatitis A And Hepatitis B (Intramuscular Use) Adult Dosage 82603 2016 AKILA SWAIN Hep A-Hep B; Series #: 2; 1.0 mL; IM; Left Arm; Mfg: SmithReveeine; Lot: [id number]; VIS given (Karley: 04/17/16; 04/17/16). [facility] Immunization Administration By Injection, One Vaccine Immunization Administration By Injection, One Vaccine 12285 2016 AKILA SWAIN [facility] Immunization Administration By Injection, Each Additional Vaccine Immunization Administration By Injection, Each Additional Vaccine 500072016 AKILA SWAIN [facility] Vaccines Viral Measles, Mumps and Rubella, Live Vaccines Viral Measles, Mumps and Rubella, Live 56250 2016 AKILA SWAIN MMR; Series #: 2; .5 mL; SC; Left Arm; Mfg: Merck; Lot: [id number]; VIS given (Karley: 01/17/12). [facility] Skin Test Anergy Tuberculin Intradermal Skin Test Anergy Tuberculin Intradermal 74288 2016 TL BRITT IPPD; Series #: 1; .1 mL; ID; Left Arm; Mfg: Sanofi Pasteur; Lot: [id number]; VIS given. [facility] Patient education, not otherwise cla ified, non-physician provider, group, per se ion 2016 RAFIA DOMINGUEZ [facility] Visual Function Screening Visual Function Screening 14635 2016 YUNG MICHAEL [facility] Physician Supervised Injection Intramuscular Antibiotic Physician Supervised Injection Intramuscular Antibiotic 76956 2016 AKILA SWAIN [facility] Injection, penicillin g benzathine, 100,000 units 2016 AKILA SWAIN [facility] Vaccines Adenovirus Type 7 Live, For Oral Use Vaccines Adenovirus Type 7 Live, For Oral Use 62442 2016 AKILA SWAIN [facility] Immunization Admin Intranasal / Oral Each Additional Vaccine Immunization Admin Intranasal / Oral Each Additional Vaccine 45072 2016 AKILA SWAIN [facility] Vaccines Adenovirus Type 4 Live, For Oral Use Vaccines Adenovirus Type 4 Live, For Oral Use 45487 2016 AKILA SWAIN [facility] Influenza Split Virus Vaccine IM W/ Preserv Trivalent 0.50mL Dosage Influenza Split Virus Vaccine IM W/ Preserv Trivalent 0.50mL Dosage 77536 2016 AKILA SWAIN [facility] Immunization Administration By Injection, One Vaccine Immunization Administration By Injection, One Vaccine 82510 2016 AKILA SWAIN [facility] Immunization Administration By Injection, Each Additional Vaccine Immunization Administration By Injection, Each Additional Vaccine 93683 2016 AKILA SWAIN DoD Vaccines Viral Measles, Mumps and Rubella, Live Vaccines Viral Measles, Mumps and Rubella, Live 42562 2016 AKILA SWAIN MMR; Series #: 1; .5 mL; SC; Right Arm; Mfg: Merck; Lot: [id number]; VIS given (Karley: 01/17/12). [facility] Vaccines Viral Varicella (Active) Vaccines Viral Varicella (Active) 25208 2016 AKILA SWAIN Varicella; Series #: 1; .5 mL; SC; Right Arm; Mfg: Merck; Lot: [id number]; VIS given (Karley: 12/10/07). [facility] Hepatitis A And Hepatitis B (Intramuscular Use) Adult Dosage Hepatitis A And Hepatitis B (Intramuscular Use) Adult Dosage 26457 2016 AKILA SWAIN Hep A-Hep B; Series #: 1; 1.0 mL; IM; Left Arm; Mf: Gonway; Lot: [id number]; VIS given (Karley: 04/17/16; 04/17/16). [facility] Meningococcal Polysaccharide Diphtheria Toxoid Conjugate Vaccine 2016 AKILA SWAIN Meningococcal MCV4P; Series #: 1; .5 mL; IM; Left Arm; Mfg: Sanofi Pasteur; Lot: [id number]; VIS given (Karley: 12/28/2015). [facility] Tdap Vaccine Tdap Vaccine 08093 2016 AKILA SWAIN Tdap; Series #: 1; .5 mL; IM; Right Arm; Mfg: Other; Lot: [id number]; VIS given (Karley: 11/22/14). [facility] Threshold Audiogram (Pure Tone) Threshold Audiogram (Pure Tone) 38783 2016 ELIJAH CHRISTIANSON DoD Audiometry Group Testing Audiometry Group Testing 70513 2016 ELIJAH CHRISTIANSON [facility] Threshold Audiogram (Pure Tone) Automated Threshold Audiogram (Pure Tone) Automated [id number] THADDEUS MILES [facility] Vaccine SARS-CoV-2 mRNA-LNP Humberto Protein Preservative Free 100mcg/0.5mL IM Second Dose Vaccine SARS-CoV-2 mRNA-LNP Humberto Protein Preservative Free 100mcg/0.5mL IM Second Dose 0012A VIANCA LEIGH [facility] Vaccine SARS-CoV-2 mRNA-LNP Humberto Protein Preservative Free 100mcg/0.5mL IM Vaccine SARS-CoV-2 mRNA-LNP Humberto Protein Preservative Free 100mcg/0.5mL [place] [address] VIANCA LEIGH COVID-19 Moderna; Series #: 2; 0.5 mL; IM; Left Arm; Mfg: Moderna [employer].; Lot: [id number]. [facility] Vaccine SARS-CoV-2 mRNA-LNP Humberto Protein Preservative Free 50mcg/0.25mL IM Vaccine SARS-CoV-2 mRNA-LNP Humberto Protein Preservative Free 50mcg/0.25mL IM [address] MIREYA WALL COVID-19 Moderna; Series #: 3; 0.25 mL; IM; Left Arm; Mfg: Moderna [employer].; Lot: [id number]; VIS given (Karley: 05/25/2021). [facility] Vacc SARS-CoV-2 mRNA-LNP Humberto Protein Preservative Free 50mcg/0.25mL IM Booster Dose Vacc SARS-CoV-2 mRNA-LNP Humberto Protein Preservative Free 50mcg/0.25mL IM Booster Dose 0064A MIREYA WALL [facility] Chiropractic Manip Treatmt (CMT) Spinal Three [place] Four Region Chiropractic Manip Treatmt (CMT) Spinal Three [place] Region [address] VALDEZ MONROE [facility] Ophthalmological New Patient Start Comprehensive Care Ophthalmological New Patient Start Comprehensive Care [address] TRAMA[address] PUENTE [facility] Determination Of Refractive State Determination Of Refractive State 15874 TRAMAINE PUENTE Social History Combined list of available smoking, tobacco, and other social history from Department of Defense and Veterans Affairs facilities. 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 Patient denies significant medical or mental health concerns at this time that have?not been previously mentioned. DD Forms 2807-1 and 0707 were completed, signed, and to be uploaded into [employer] by calculation reviewer/ELEUTERIO. With information provided, there are no other apparent medical or mental health concerns that have not been identified, or previously stated, and member is cleared to separate from as soon as possible.? ? Final physical (DD Form 2808) form completed and to be uploaded into [employer] by calculation reviewer/ELEUTERIO. No significant medical or mental health problems identified, or stated, that would limit mcc/separation processing.? ? ? Sajan Regan. DEBO Goldberg, [facility] Nurse Practitioner [facility] [place], [place] ? ? ? Extracted from:Title: Cerumen removal (Ad 0nly) [facility] Author: JR WIGGINS, Harris Date: 05/05/23 1.?Impacted cerumen in right ear [...] ? ? The cerumen was removed by?undersigned commanding officer traffic division. The supervising commanding officer traffic division of record for cerumen management was _. ? Plan: ? ?Patient to RTC in 6 months for routine cerumen management ? ? PO2 to return to Dept for follow-up #1 audio re-check for termination purposes ? Cheri_, Jr Dale Doctor of Audiology Audiology Dept. [facility] JAROCHO ? Extracted from:Title: Office Clinic Note Author: AUBREE OSMAN Date: 05/05/23 Encounter for examination and observation for other specified reasons Hearing WNL. A copy of hearing test was given to patient, scanned into [email or web address], and given to medical records. Patient displayed an early warning shift in his left ear based on his 2017 reference audiogram. Patient acknowledged his results. Extracted from:Title: AUDIOLOGY NOTE [id number] Author: DEE RICARDO Date: 05/01/23 Encounter for examination and observation for other specified reasons Hearing WNL.?Patient has a Positive Shift in Left Ear and an Early Warning Shift in Right Ear.??Honey Grader And Blender examined patient's ears for cerumen.? Patient was referred to see Doctor Chrei for?an ear cleaning?and?a follow up examination. Patient acknowledged change in hearing.?? A copy of the hearing test was given to member and a copy of the hearing test was scanned into [employer]. 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 [...] responsible for his/her individual medical readiness. The client sales and service officer stated understanding. FIT FOR DUTY. -The patient was found to be physically capable of performing assigned and prospective duties without limitations.? -Directed to [facility] for MH concerns, no limitations to duty found. -Patient does not require any additional medical or mental health consults or referrals.? -Educated patient on mental health and medical services available. -Pt will be notified of any pertinent abnormal lab work. ? Regan Kim, LT, LT, MC, USN [facility] [place], [place] ? ? 11/19/[address] [place] [address] Functional Status Combined list of recent functional and cognitive assessments recorded at Department of Defense and Veterans Affairs (VA).VA Functional Peñuelas Measurement (FIM) Scale: 1 = Total Assistance (Subject = 0% +), 2 = Maximal Assistance (Subject = 25% +), 3 = Moderate Assistance (Subject = 50% +), 4 = Minimal Assistance (Subject = 75% +), 5 = Supervision, 6 = Modified Peñuelas (Device), 7 = Complete Peñuelas (Timely, Safely). Assessment Date/Time Source Assessment Type Assessment Skill Assessment Score Assessment Details No data available for this section
== END 2024-11-19 15:35 | disposition home or self-care (01) ==
PROVIDERS: PCP Family Medicine; Visit Provider Physician Assistant Medical
DX: G44.201 Tension-type headache, unspecified, intractable (principal); M54.2 Cervicalgia; F41.8 Other specified anxiety disorders; G47.30 Sleep apnea, unspecified
CPT/HCPCS: 99214

== ENCOUNTER → 2024-11-19 14:56 | Outpatient (BNVA) | payer BC, SELFPAY | PROVIDERS: PCP Family Medicine; Visit Provider Physician Assistant Medical ==

== ENCOUNTER 2025-06-14 16:00 | Outpatient (AMB) | payer BC, SELFPAY ==
--- NOTE | 2025-06-14 16:00 | A.OFFPC_ITS ---
Vital Signs 06/14/25 16:03 Height 5 ft 9.88 in Weight 255 lb BMI 36.7 BP 116/84 Blood Pressure Location Rt brachial Position Sitting Respiration 16 Pulse 91 Pulse Source Pulse Oximeter Pulse Oximetry (%) 95 Oxygen Delivery Method Room Air Intake Visit Reasons: CPE with f/u labs and health maint Allergies No Known Allergies Allergy (Verified 06/14/25 16:04) Medication List - Last Reconciled 06/14/25 by Maximino Zeng MD citalopram (Celexa) 20 mg PO DAILY 30 days cyclobenzaprine 10 mg PO BEDTIME PRN 10 days NS gabapentin 1-2 caps orally 2 times a day PRN; 30 days hydroxyzine HCl 50 mg PO BEDTIME 30 days magnesium oxide 400 mg PO DAILY 30 days meloxicam 15 mg PO DAILY 30 days omeprazole 20 mg PO DAILY 30 days Tobacco use date assessed: 06/14/25 Dental Screening Dental Screen Date: 11/02/24 HPI CPE with f/u labs and health maint HPI Details 29 y/o male presents for a CPE with f/u labs. No recent labs to review. Hx of pre-diabetes. Reports hearing changes. HPI Comments History of Present Illness Details Documentation assistance for Maximino Zeng MD, was provided by Sonido Kessler, Cleaner Signs on at 4:49 PM EST. I, Dr. Zeng, have read, observed, and verified documentation. [facility] Medical History No pertinent past medical history Surgical History No pertinent past surgical history Family History Father Diabetes HTN (hypertension) Other Mental health disorder Substance abuse Social History Housing: House Alcohol intake: current Alcohol intake frequency: holidays/special occasions only Patient Tobacco Use Status: Former Tobacco user e-Cigarette/Vaping Use: Former Use service: Yes Current occupational status: employed Current occupation: [employer] Current occupational exposures/hazards: No Cognitive needs: No Hearing needs: No Vision needs: No Questionnaire Thrive Questionnaire Date Thrive assessed: 11/02/24 AUDIT C Alcohol Use Questionnaire (AUDIT-C) 1. How often do you have a drink containing alcohol?: Monthly or less 2. How many drinks containing alcohol do you have on a typical day when you are drinking?: 5 or 6 3. How often do you have six or more drinks on one occasion?: Never Total Score: 3 NICHOLAS-7 AMB Questionnaire NICHOLAS-7 Date NICHOLAS - 7 assessed: 12/17/23 Source: Developed by Drs. Clement Velez, Sheyla Billings, Priyank Camara and colleagues, with an educational nam from [employer]. Review of Systems Const Denies chills, Denies fatigue, Denies fever(s), Denies headache(s) and Denies weakness Eyes Denies change in vision ENT Denies dizziness, Denies headache(s), Denies hearing loss, Denies nasal congestion, Denies sinus pain, Denies sinus pressure and Denies sore throat Card Denies chest pain, Denies lightheadedness, Denies dyspnea and Denies other (palpitations) Resp Denies cough, Denies dyspnea and Denies wheezing GI Denies abdominal pain, Denies melena, Denies hematochezia, Denies change in bowel habits, Denies dyspepsia and Denies nausea Denies hematuria and Denies dysuria Musc Denies abnormal gait, Denies myalgias, Denies arthralgias, Denies numbness and Denies tingling Skin/Breast Denies rash, Denies unusual bruising and Denies wounds Neuro Denies abnormal gait, Denies dizziness, Denies headache(s), Denies memory loss, Denies numbness, Denies Sensory deficit (Neuro), Denies tingling and Denies weakness Psych Denies anxiety, Denies depression and Denies memory loss Endo Denies cold intolerance, Denies fatigue, Denies heat intolerance, Denies polydipsia and Denies polyuria Jose/Lymph Denies easy bleeding and Denies easy bruising Aller/Immun Denies wheezing Physical exam (Primary Care) Vital Signs: Last Vital Signs Pulse 91 06/14/25 16:03 Resp 16 06/14/25 16:03 BP 116/84 06/14/25 16:03 Pulse Ox 95 06/14/25 16:03 Oxygen Delivery Method Room Air 06/14/25 16:03 BMI result Body Mass Index 36.7 Tobacco/Smoking Status: Tobacco use Status Tobacco use date assessed 06/14/25 06/14/25 16:08 Patient Tobacco Use Status Former Tobacco user 06/14/25 16:01 e-Cigarette/Vaping Use Former Use 06/14/25 16:08 Thrive Assessment: Date of Thrive Assessment Date Thrive assessed 11/02/24 06/14/25 16:01 Const General: no acute distress, well developed, alert and awake Nutritional Appearance: well nourished Orientation/consciousness: patient oriented x3 HENMT Head: Yes normocephalic and Yes atraumatic Ears: hearing grossly normal bilaterally and TM's normal bilaterally General nose exam: Normal external nose present and Normal nares present Mouth: Normal oral and palatal mucosa present and moist mucous membranes Teeth and gingiva: dentition normal Throat: Yes posterior oropharynx normal Eyes General: appearance normal, both eyes and all related structures Pupils: Equal, round and reactive pupils present and Pupil accommodation reflex normal EOM: EOMs intact bilaterally Neck Neck: Yes normal visual inspection, Yes no lymphadenopathy and Yes trachea midline Thyroid: Thyroid normal Carotids: no bruits Lymphatic: no lymphadenopathy noted Chest Chest palpation & inspection: normal inspection of the chest Resp Effort & Inspection: normal respiratory effort Auscultation: clear to auscultation bilaterally Cardio Rate: regular rate Rhythm: regular rhythm Heart sounds: S1 normal heart sound present, S2 normal heart sound present, no gallops, no murmurs and no rubs Bruits: no abdominal aortic bruits and no carotid bruits GI Palpation (GI): No Abdominal aortic bruit present, Soft to palpation, nontender, No hepatosplenomegaly present and No Rebound tenderness present Auscultation: normal bowel sounds General: Yes no CVA tenderness Back/Spine/Pelvis Back: no CVA tenderness Cervical Spine: cervical ROM normal and No Cervical spine tenderness Thoracic/Lumbar Spine: thoraco-lumbar ROM normal, No pain with thoraco-lumbar ROM, No thoracic spinal tenderness and No lumbar spinal tenderness Skin Lesions: no lesions Rashes: no rashes Trauma: no lacerations or abrasions Wounds: no wounds Nails: normal Neuro General: patient oriented x3 Cranial nerves: Yes Equal, round and reactive pupils present Cognition (Neuro): normal cognition Gait exam (Neuro): Normal gait present Motor exam (neuro): 5/5 motor strength present throughout Sensory Exam: No Sensory deficit (Neuro) Deep tendon reflexes (DTR's): Right patellar reflex intensity grade: 2+ and Left patellar reflex intensity grade: 2+ Extrem General: Yes normal to inspection and No edema Psych Appearance: grossly normal Affect: normal affect Attitude: cooperative Thought process: Normal thought process present Coding Level of Care Code Est Pt Level 3 (59837) Est Pt Prev Care 18-39y(31352) Diagnoses Adult general medical exam Z00.00 Pre-diabetes R73.03 Change in hearing H91.90 Assessment & Plan Assessment & Plan (1) Adult general medical exam: Code(s): Z00.00 - Encounter for general adult medical examination without abnormal findings Category: Medical Plan: 29-year-old male presents for complete physical exam Exam within limits Encouraged healthy diet with active lifestyle and plenty of exercise (2) Pre-diabetes: Code(s): R73.03 - Prediabetes Category: Medical Plan: History of pre diabetes He says he has been working on a diet lower in sugars and starches Has lost about 4 lb since his last visit Rechecking A1c test with his labs and we can follow-up at next visit (3) Change in hearing: Code(s): H91.90 - Unspecified hearing loss, unspecified ear Category: Medical Plan: Tinnitus in change in hearing He notes that he has had some exposure to loud environments in the . He notes that he has had a hearing test which did show mild changes about 2 and half years ago Repeating hearing testing Orders: Orders Lipid Panel Today Z00.00 - Encounter for general adult medical examination without abnormal findings UA CC w/rflx Micro + Cult Today Z00.00 - Encounter for general adult medical examination without abnormal findings Comprehensive [place]. Panel Fast Today Z00.00 - Encounter for general adult medical examination without abnormal findings Microalbumin, Random (w Creat) Today I10 - Essential (primary) hypertension Hemoglobin A1c Today R73.01 - Impaired fasting glucose TSH reflex Free T4 Today Z00.00 - Encounter for general adult medical examination without abnormal findings Referrals Audiology Referral H91.90 - Unspecified hearing loss, unspecified ear
[2025-06-14 16:03] VITALS: BP 116/84; PULSE 91; RESP 16; O2SAT 95; BMI 36.7
== END 2025-06-14 16:58 | disposition home or self-care (01) ==
LOC: HO.HMCFM 16:01
PROVIDERS: PCP Family Medicine; Visit Provider Family Medicine
DX: Z00.00 Encounter for general adult medical examination without abnormal findings (principal); R73.03 Prediabetes; H91.90 Unspecified hearing loss, unspecified ear

== ENCOUNTER 2025-07-08 09:41 | Outpatient (REF) | payer BC, SELFPAY ==
[2025-07-08 13:10] LABS: Appearance Urine Clear; Glucose Urine UA Negative (Negative); PH 6.5 (5.0-9.0); Specific Gravity - Urine >= 1.030 (1.005-1.025)
[2025-07-08 13:42] LABS: Microalbum/Creatinine Ratio Ur 4.4 ug/mg cr (<30)
[2025-07-08 13:42] LABS: Alanine Aminotransferase 28 U/L (0-40); Albumin Level 4.8 g/dL (3.5-5.0); Alkaline Phosphatase 86 U/L (39-117); Anion Gap 11 (12-20); Aspartate Amino Transferase 22 U/L (5-37); Blood Urea Nitrogen 12 mg/dL (9-16); Calcium 9.5 mg/dL (8.4-10.2); Carbon Dioxide 29 mmol/L (22-29); Chloride 106 mmol/L (96-108); Cholesterol 183 mg/dL (<200); Estimated Glomerular Filt Rate > 60; HDL Cholesterol 71 mg/dL (>40); Potassium 4.3 mmol/L (3.3-5.1); Sodium 142 mmol/L (135-145); Total Protein 7.6 g/dL (6.5-8.0); Triglycerides 68 mg/dL (<150)
== END 2025-07-08 09:42 | disposition home or self-care (01) ==
LOC: HO.HMGCLDS 09:41
PROVIDERS: PCP Family Medicine; Visit Provider Family Medicine
DX: Z00.00 Encounter for general adult medical examination without abnormal findings (principal); I10 Essential (primary) hypertension; R73.01 Impaired fasting glucose
CPT/HCPCS: 36415; 80053; 80061; 81003; 82043; 82570; 83036; 84443

== ENCOUNTER 2025-07-13 16:37 | Outpatient (AMB) | payer BC, SELFPAY ==
--- NOTE | 2025-07-13 16:23 | MHC.PC.OV ---
Intake Visit Reasons: f/u CPE-labs via telemed Allergies No Known Allergies Allergy (Verified 07/13/25 16:34) Tobacco use date assessed: 07/13/25 Dental Screening Dental Screen Date: 07/13/25 Did you have a dental visit in the last 12 months?: Yes Did you have a dental problem in the last 6 months where you did not have access to dental care?: No Was dental information given to patient?: Patient has dentist HPI f/u CPE-labs via telemed HPI Details 29 y/o male presents to f/u labs via telemedicine. Labs drawn 07/08/25. Reviewed labs with pt. A1c 5.5%. Triglycerides 68. TC 183. LDL 99. HDL 71. HPI Comments History of Present Illness Details Documentation assistance for Maximino Zeng MD, was provided by Sonido Kessler, Reheater Helper on 07/13/2025 at 4:59 PM EST. I, Dr. Zeng, have read, observed, and verified documentation. [facility] Medical History No pertinent past medical history Surgical History No pertinent past surgical history Family History Father Diabetes HTN (hypertension) Other Mental health disorder Substance abuse Social History (Updated 07/13/25 @ 16:35 by Jailyn Whitaker [facility]) Housing: House Alcohol intake: current Alcohol intake frequency: holidays/special occasions only Patient Tobacco Use Status: Former Tobacco user e-Cigarette/Vaping Use: Former Use service: Yes Current occupational status: employed Current occupation: [employer] Current occupational exposures/hazards: No Cognitive needs: No Hearing needs: No Vision needs: No Questionnaire Thrive Questionnaire Date Thrive assessed: 11/02/24 NICHOLAS-7 AMB Questionnaire NICHOLAS-7 Date NICHOLAS - 7 assessed: 12/17/23 Source: Developed by Drs. Clement Velez, Sheyla Billings, Priyank Camara and colleagues, with an educational nam from [employer]. Review of Systems Const Denies chills, Denies fatigue, Denies fever(s), Denies headache(s) and Denies weakness ENT Denies dizziness and Denies headache(s) Card Denies dyspnea Resp Denies cough, Denies dyspnea, Denies wheezing and Denies other (shortness of breath) Musc Denies numbness and Denies tingling Neuro Denies dizziness, Denies headache(s), Denies numbness, Denies tingling and Denies weakness Psych Denies anxiety and Denies depression Endo Denies fatigue Aller/Immun Denies wheezing Physical exam (Primary Care) Tobacco/Smoking Status: Tobacco use Status Tobacco use date assessed 07/13/25 07/13/25 16:36 Patient Tobacco Use Status Former Tobacco user 07/13/25 16:35 e-Cigarette/Vaping Use Former Use 07/13/25 16:35 Thrive Assessment: Date of Thrive Assessment Date Thrive assessed 11/02/24 07/13/25 16:23 Telehealth Telehealth Telehealth Platform: Telephone Location of provider rendering services: practice address Location of patient: address on file Patient Identification confirmed using: Name, : Yes Telehealth method: voice only Patient verbally consented to treatment: Yes Patient verbally consented to billing insurance company: Yes Patient informed of any privacy concerns related to visit: Yes Minutes spent on Phone/Video with Pt.: 5 Coding Level of Care Code Tele Est Pt Level 2 (30030) Diagnoses Pre-diabetes R73.03 Assessment & Plan Assessment & Plan (1) Pre-diabetes: Code(s): R73.03 - Prediabetes Category: Medical Plan: A1c 5.5%. Pre diabetes range Continue working on diet low in sugars and starches Continue weight loss We will continue to monitor Plan He will return in about 6 months to follow-up pre diabetes. Annual physical is already scheduled for July 2026
== END 2025-07-13 17:05 | disposition home or self-care (01) ==
LOC: HO.HMCFM 16:37
PROVIDERS: PCP Family Medicine; Visit Provider Family Medicine
DX: R73.03 Prediabetes (principal)